=== PATIENT | male | born 1955 | race Caucasian/White ===

== ENCOUNTER 2018-04-09 11:20 | Inpatient (IN) ==
[2018-04-09] MEDS ORDERED: SODIUM CHLORIDE 0.9% 1,000 ML IV STA (11:35)
[2018-04-09] MEDS ORDERED: FAMOTIDINE 20 MG/2 ML VIAL IV STA (11:46)
[2018-04-09 12:04] LABS: Basophils # 0.1 10*3/uL (0.0-0.2); Basophils % 0.3 % (0.0-0.8); Eosinophils % 0.2 % (0.00-10.9); Hematocrit 38.7 VOL% (42.0-52.0); Hemoglobin 13.8 GM/DL (14.0-18.0); Immature Granulocytes % 2.5 %; Immature Granulocytes Absolute 0.46 #; Lymphocytes % 10.7 % (21.2-54.2); Mean Corpuscular HGB Conc 35.7 GM/DL (32-36); Mean Corpuscular Hemoglobin 33 PG (27-34); Mean Corpuscular Volume 91.9 FL (87-102); Mean Platelet Volume 11.7 FL (9.6-12.0); Monocytes % 10.9 % (1.7-12.7); Neutrophils % 75.4 % (38.7-73.9); Platelet Count 200 T/CUMM (130-400); Red Blood Count 4.21 MC/CUMM (3.8-5.5); Red Cell Distribution Width 12.8 % (9.3-17.3); White Blood Count 18.6 T/CUMM (4-12)
[2018-04-09 12:19] LABS: Alanine Aminotransferase 12 U/L (16-61); Albumin 2.7 G/DL (3.4-5.0); Alkaline Phosphatase 77 U/L (45-117); Aspartate Amino Transferase 22 U/L (0-37); Blood Urea Nitrogen 22 MG/DL (7-18); Calcium 8.1 MG/DL (8.5-10.1); Glucose 115 MG/DL (74-106); Osmolality,Calculated 247.1 MOS/KG (273-304); Potassium 3.5 MMOL/L (3.5-5.1); Sodium 121 MMOL/L (136-145); Total Protein 5.7 G/DL (6.4-8.3)
[2018-04-09 12:22] LABS: Lactic Acid 2.9 MMOL/L (0.4-2.0)
[2018-04-09 12:32] LABS: INR 0.9
[2018-04-09 12:50] LABS: Hypochromasia 1+; Platelet Estimate Adequate
[2018-04-09 13:09] LABS: Apearance,Urine Slightly Hazy (Clear); Bacteria,Urine Moderate /HPF (Few); Bilirubin,Urine Negative (Negative); Blood, Urine Negative (Negative); Glucose,Urine (UA) Negative (Negative); Hyaline Casts,Urine 16 /LPF (0-3); Ketones,Urine Negative (Negative); Mucus,Urine Occasional /LPF (Occasional); Nitrite,Urine Negative (Negative); Protein,Urine Negative; Squamous Epithelial Cell,Urine Occasional /HPF (0-10); Urine Color Yellow (Yellow); Urine Specific Gravity 1.011 (1.001-1.035); Urine Urobilinogen < 2.0 EU/DL (0.2-1.0); WBC,Urine 9 /HPF (0-6)
[2018-04-09] MEDS ORDERED: SODIUM CHLORIDE 0.9% 1,000 ML IV ONE (14:42)
[2018-04-09] MEDS ORDERED: ONDANSETRON 4 MG/2 ML VIAL IV PRN (14:49)
[2018-04-09] MEDS ORDERED: BUDESONIDE 0.25 MG/2 ML NEB RESP TX PRN (15:07)
[2018-04-09] MEDS: PIPERACILLIN/TAZOBACTAM 3,375 MG in SODIUM CHLORIDE 0.9% 100 ML IV SCH (17:13)
[2018-04-09] MEDS: SODIUM CHLORIDE 0.9% 1,000 ML IV SCH (17:14)
[2018-04-09 18:07] LABS: Hemoglobin 12.7 GM/DL (14.0-18.0)
[2018-04-09] MEDS: VANCOMYCIN INJ 1,250 MG in SODIUM CHLORIDE 0.9% 250 ML IV SCH (20:00)
[2018-04-09] MEDS ORDERED: ZIPRASIDONE 20 MG/1 ML VIAL IM ONE (20:09)
[2018-04-09] MEDS ORDERED: CLORAZEPATE 7.5 MG TABLET PO ONE (20:10)
[2018-04-09] MEDS: NICOTINE 21 MG/24 HR PATCH TRANSDERM SCH (20:42)
[2018-04-09] MEDS: GENTAMICIN INJ 160 MG in SODIUM CHLORIDE 0.9% 100 ML IV SCH (22:20)
[2018-04-09] MEDS: ALBUTEROL/IPRATROPIUM 3 ML NEB RESP TX SCH (23:43)
[2018-04-10] MEDS: PIPERACILLIN/TAZOBACTAM 3,375 MG in SODIUM CHLORIDE 0.9% 100 ML IV SCH ×2 (02:43→13:50)
[2018-04-10] MEDS: ALBUTEROL/IPRATROPIUM 3 ML NEB RESP TX SCH ×3 (07:25→23:02)
[2018-04-10] MEDS ORDERED: PANTOPRAZOLE 40 MG VIAL IV SCH (09:00)
[2018-04-10] MEDS ORDERED: SODIUM CHLORIDE 0.9% 500 ML IV ONE (10:10)
[2018-04-10] MEDS: NICOTINE 21 MG/24 HR PATCH TRANSDERM SCH (10:37)
[2018-04-10 10:42] LABS: Basophils # 0.1 10*3/uL (0.0-0.2); Basophils % 0.8 % (0.0-0.8); Eosinophils # 0.2 10*3/uL (0.0-0.87); Eosinophils % 1.2 % (0.00-10.9); Hematocrit 36.9 VOL% (42.0-52.0); Hemoglobin 12.8 GM/DL (14.0-18.0); Immature Granulocytes % 2.1 %; Immature Granulocytes Absolute 0.27 #; Lymphocytes # 2.7 10*3/uL (1.4-4.0); Lymphocytes % 21.2 % (21.2-54.2); Mean Corpuscular HGB Conc 34.7 GM/DL (32-36); Mean Corpuscular Hemoglobin 33 PG (27-34); Mean Corpuscular Volume 93.7 FL (87-102); Mean Platelet Volume 11.9 FL (9.6-12.0); Monocytes # 1.5 10*3/uL (0.11-0.8); Monocytes % 11.5 % (1.7-12.7); Neutrophils % 63.2 % (38.7-73.9); Platelet Count 225 T/CUMM (130-400); Red Blood Count 3.94 MC/CUMM (3.8-5.5); White Blood Count 12.7 T/CUMM (4-12)
[2018-04-10] MEDS ORDERED: FINASTERIDE 1 MG PO SCH (10:45)
[2018-04-10 10:47] LABS: Calcium 8.3 MG/DL (8.5-10.1); Osmolality,Calculated 262.7 MOS/KG (273-304); Potassium 3.4 MMOL/L (3.5-5.1)
[2018-04-10 11:03] LABS: Hematocrit 35.9 VOL% (42.0-52.0); Hemoglobin 12.6 GM/DL (14.0-18.0)
[2018-04-10] MEDS: SODIUM CHLORIDE 0.9% 1,000 ML IV SCH ×2 (12:54→23:38)
[2018-04-10] MEDS: PRAMIPEXOLE 0.25 MG TABLET PO SCH ×2 (13:05→21:22)
[2018-04-10] MEDS: TAMSULOSIN 0.4 MG CAPSULE PO SCH (13:06)
[2018-04-10] MEDS: predniSONE 5 MG TABLET PO SCH (13:06)
[2018-04-10] MEDS: FOLIC ACID 1 MG TABLET PO SCH (13:08)
[2018-04-10] MEDS: GENTAMICIN INJ 160 MG in SODIUM CHLORIDE 0.9% 100 ML IV SCH (13:50)
[2018-04-10] MEDS: GABAPENTIN 600 MG TABLET PO SCH ×2 (16:19→21:22)
[2018-04-10] MEDS: VANCOMYCIN INJ 1,250 MG in SODIUM CHLORIDE 0.9% 250 ML IV SCH (21:21)
[2018-04-10] MEDS: PANTOPRAZOLE 40 MG VIAL IV SCH (21:21)
[2018-04-11] MEDS: SODIUM CHLORIDE 0.9% 1,000 ML IV SCH ×2 (04:42→18:39)
[2018-04-11 05:49] LABS: Basophils # 0.1 10*3/uL (0.0-0.2); Basophils % 1.2 % (0.0-0.8); Eosinophils # 0.2 10*3/uL (0.0-0.87); Eosinophils % 2.3 % (0.00-10.9); Immature Granulocytes % 4.7 %; Lymphocytes # 2.7 10*3/uL (1.4-4.0); Lymphocytes % 31.2 % (21.2-54.2); Mean Corpuscular HGB Conc 34.3 GM/DL (32-36); Mean Corpuscular Hemoglobin 32 PG (27-34); Mean Corpuscular Volume 94.1 FL (87-102); Mean Platelet Volume 11.4 FL (9.6-12.0); Monocytes # 0.9 10*3/uL (0.11-0.8); Monocytes % 10.4 % (1.7-12.7); Neutrophils # 4.3 10*3/uL (1.4-7.4); Neutrophils % 50.2 % (38.7-73.9); Platelet Count 213 T/CUMM (130-400); Red Blood Count 3.72 MC/CUMM (3.8-5.5); Red Cell Distribution Width 13.1 % (9.3-17.3); White Blood Count 8.6 T/CUMM (4-12)
[2018-04-11 07:00] LABS: Calcium 8.2 MG/DL (8.5-10.1); Osmolality,Calculated 261.4 MOS/KG (273-304); Potassium 3.4 MMOL/L (3.5-5.1)
[2018-04-11] MEDS ORDERED: LIDOCAINE 100 MG/5 ML SYRINGE ONE (10:00)
[2018-04-11] MEDS ORDERED: PROPOFOL 200 MG/20 ML VIAL IV ONE (10:00)
[2018-04-11] MEDS: ALBUTEROL/IPRATROPIUM 3 ML NEB RESP TX SCH ×3 (10:39→23:14)
[2018-04-11] MEDS: VANCOMYCIN INJ 1,250 MG in SODIUM CHLORIDE 0.9% 250 ML IV SCH ×2 (12:12→23:21)
[2018-04-11] MEDS: PANTOPRAZOLE 40 MG VIAL IV SCH ×2 (14:44→21:37)
[2018-04-11] MEDS: PRAMIPEXOLE 0.25 MG TABLET PO SCH ×2 (14:45→21:36)
[2018-04-11] MEDS: NICOTINE 21 MG/24 HR PATCH TRANSDERM SCH (14:45)
[2018-04-11] MEDS: POTASSIUM CHLORIDE 20 MEQ TABLET PO PRN ×2 (14:46→18:40)
[2018-04-11] MEDS: CETIRIZINE 10 MG TABLET PO SCH (14:46)
[2018-04-11] MEDS: TAMSULOSIN 0.4 MG CAPSULE PO SCH (14:46)
[2018-04-11] MEDS: GABAPENTIN 600 MG TABLET PO SCH ×3 (14:46→21:37)
[2018-04-11] MEDS: FOLIC ACID 1 MG TABLET PO SCH (14:47)
[2018-04-11] MEDS: predniSONE 5 MG TABLET PO SCH (14:47)
[2018-04-12] MEDS: SODIUM CHLORIDE 0.9% 1,000 ML IV SCH (00:40)
[2018-04-12] MEDS: ALBUTEROL/IPRATROPIUM 3 ML NEB RESP TX SCH ×2 (07:40→14:15)
[2018-04-12 07:59] LABS: Basophils # 0.1 10*3/uL (0.0-0.2); Basophils % 1.1 % (0.0-0.8); Eosinophils # 0.3 10*3/uL (0.0-0.87); Eosinophils % 3.1 % (0.00-10.9); Hematocrit 37.8 VOL% (42.0-52.0); Hemoglobin 12.2 GM/DL (14.0-18.0); Immature Granulocytes % 4.2 %; Immature Granulocytes Absolute 0.46 #; Lymphocytes # 3.6 10*3/uL (1.4-4.0); Lymphocytes % 32.5 % (21.2-54.2); Mean Corpuscular HGB Conc 32.3 GM/DL (32-36); Mean Corpuscular Hemoglobin 31 PG (27-34); Mean Corpuscular Volume 95.5 FL (87-102); Mean Platelet Volume 10.8 FL (9.6-12.0); Monocytes # 1.1 10*3/uL (0.11-0.8); Monocytes % 10.2 % (1.7-12.7); Neutrophils # 5.4 10*3/uL (1.4-7.4); Neutrophils % 48.9 % (38.7-73.9); Platelet Count 256 T/CUMM (130-400); Red Blood Count 3.96 MC/CUMM (3.8-5.5); Red Cell Distribution Width 13.2 % (9.3-17.3); White Blood Count 11.1 T/CUMM (4-12)
[2018-04-12] MEDS ORDERED: CALCIUM CARBONATE CHEW 500 MG TABLET PO PRN (08:20)
[2018-04-12 08:29] LABS: Calcium 8.3 MG/DL (8.5-10.1); Osmolality,Calculated 262.2 MOS/KG (273-304); Potassium 3.5 MMOL/L (3.5-5.1)
[2018-04-12] MEDS: PANTOPRAZOLE 40 MG VIAL IV SCH (08:43)
[2018-04-12] MEDS: NICOTINE 21 MG/24 HR PATCH TRANSDERM SCH (08:44)
[2018-04-12] MEDS: predniSONE 5 MG TABLET PO SCH (08:45)
[2018-04-12] MEDS: PRAMIPEXOLE 0.25 MG TABLET PO SCH (08:45)
[2018-04-12] MEDS: TAMSULOSIN 0.4 MG CAPSULE PO SCH (08:45)
[2018-04-12] MEDS: CETIRIZINE 10 MG TABLET PO SCH (08:45)
[2018-04-12] MEDS: GABAPENTIN 600 MG TABLET PO SCH (08:46)
[2018-04-12] MEDS: FOLIC ACID 1 MG TABLET PO SCH (08:46)
[2018-04-12] MEDS ORDERED: ACETAMINOPHEN 325 MG TABLET PO PRN (08:58)
[2018-04-12] MEDS ORDERED: FUROSEMIDE 20 MG TABLET PO SCH (09:00)
[2018-04-12] MEDS ORDERED: LISINOPRIL 10 MG TABLET PO SCH (09:00)
[2018-04-12] MEDS ORDERED: SODIUM CHLORIDE 0.65% NASAL SPRAY 45 ML BOTTLE BOTH NARES SCH (09:00)
[2018-04-12] MEDS ORDERED: METOPROLOL TARTRATE 50 MG TABLET PO SCH (09:00)
[2018-04-12 12:23] VITALS: BP 160/91
[2018-04-12] MEDS: VANCOMYCIN INJ 1,250 MG in SODIUM CHLORIDE 0.9% 250 ML IV SCH (14:20)
[2018-04-12] MEDS ORDERED: CARVEDILOL 25 MG TABLET PO SCH (14:30)
== END 2018-04-12 16:00 | DRG 313 ==
LOC: EDUNIT# → EDBD → N.ED 11:20 → SUATTDRO 14:49 → N.EDINP 14:49 → N.TELEN 16:15
PROVIDERS: ATTEND Hospitalist

== ENCOUNTER 2018-07-04 10:02 | Inpatient (IN) ==
[2018-07-04 10:24] LABS: Basophils # 0.1 10*3/uL (0.0-0.2); Basophils % 0.4 % (0.0-0.8); Eosinophils # 0.5 10*3/uL (0.0-0.87); Eosinophils % 3.3 % (0.00-10.9); Hematocrit 38.8 VOL% (42.0-52.0); Hemoglobin 12.8 GM/DL (14.0-18.0); Immature Granulocytes % 1.1 %; Immature Granulocytes Absolute 0.18 #; Lymphocytes # 3.3 10*3/uL (1.4-4.0); Lymphocytes % 20.6 % (21.2-54.2); Mean Corpuscular Hemoglobin 30 PG (27-34); Mean Corpuscular Volume 92.2 FL (87-102); Mean Platelet Volume 10.4 FL (9.6-12.0); Monocytes # 1.3 10*3/uL (0.11-0.8); Monocytes % 8.3 % (1.7-12.7); Neutrophils # 10.6 10*3/uL (1.4-7.4); Neutrophils % 66.3 % (38.7-73.9); Platelet Count 285 T/CUMM (130-400); Red Blood Count 4.21 MC/CUMM (3.8-5.5); Red Cell Distribution Width 13.9 % (9.3-17.3)
[2018-07-04 10:41] LABS: Calcium 8.6 MG/DL (8.5-10.1); Osmolality,Calculated 267.1 MOS/KG (273-304); Potassium 3.3 MMOL/L (3.5-5.1)
[2018-07-04] MEDS ORDERED: traMADol 50 MG TABLET PO PRN (12:47)
[2018-07-04] MEDS ORDERED: BUDESONIDE 0.25 MG/2 ML NEB RESP TX PRN (12:47)
[2018-07-04] MEDS ORDERED: diphenhydrAMINE CAP 25 MG CAPSULE PO PRN (12:47)
[2018-07-04] MEDS ORDERED: DICLOFENAC 1% GEL 100 GM TUBE TOP PRN (12:47)
[2018-07-04 13:17] LABS: Apearance,Urine CLEAR (Clear); Bilirubin,Urine Negative (Negative); Blood, Urine Negative (Negative); Glucose,Urine (UA) Negative (Negative); Ketones,Urine Negative (Negative); Mucus,Urine Occasional /LPF (Occasional); Nitrite,Urine Negative (Negative); Protein,Urine Negative; RBC,Urine 1 /HPF (0-4); Urine Color Yellow (Yellow); Urine Specific Gravity 1.008 (1.001-1.035); Urine Urobilinogen < 2.0 EU/DL (0.2-1.0); WBC,Urine 1 /HPF (0-6)
[2018-07-04] MEDS ORDERED: POTASSIUM CHLORIDE RIDER 10 MEQ in PREMIX 1 EACH IV PRN (13:49)
[2018-07-04 14:19] LABS: INR 0.9; PT Patient Result 9.8 SECS; Partial Thromboplastin Time 27.1 SECS (0-40)
[2018-07-04] MEDS ORDERED: ONDANSETRON 4 MG/2 ML VIAL IV PRN (15:30)
[2018-07-04] MEDS ORDERED: ACETAMINOPHEN 325 MG TABLET PO PRN (15:30)
[2018-07-04] MEDS ORDERED: GLUCAGON 1 MG VIAL IM PRN (15:30)
[2018-07-04] MEDS ORDERED: PANTOPRAZOLE 40 MG TABLET PO SCH (15:30)
[2018-07-04] MEDS ORDERED: ZALEPLON 5 MG CAPSULE PO PRN (15:30)
[2018-07-04] MEDS ORDERED: BISACODYL 5 MG TABLET PO PRN (15:30)
[2018-07-04] MEDS ORDERED: DEXTROSE 50% 25 GM/50 ML SYRINGE IV PRN (15:30)
[2018-07-04] MEDS ORDERED: LACTULOSE 20 GM/30 ML UDCUP PO PRN (15:30)
[2018-07-04] MEDS ORDERED: SODIUM CHLORIDE 0.9% 500 ML IV ONE (15:38)
[2018-07-04] MEDS: ALBUTEROL/IPRATROPIUM 3 ML NEB RESP TX SCH ×2 (15:54→23:30)
[2018-07-04] MEDS: SODIUM CHLORIDE 0.45% 1,000 ML IV SCH (16:37)
[2018-07-04] MEDS: PRAMIPEXOLE 0.25 MG TABLET PO SCH ×2 (16:38→20:49)
[2018-07-04] MEDS: CETIRIZINE 10 MG TABLET PO SCH (16:38)
[2018-07-04] MEDS: PIPERACILLIN/TAZOBACTAM 3,375 MG in SODIUM CHLORIDE 0.9% 100 ML IV SCH ×2 (16:38→23:24)
[2018-07-04] MEDS: GABAPENTIN 600 MG TABLET PO SCH ×2 (16:38→20:49)
[2018-07-04] MEDS: PANTOPRAZOLE 40 MG TABLET PO SCH ×2 (16:39→20:50)
[2018-07-04] MEDS: FOLIC ACID 1 MG TABLET PO SCH (16:39)
[2018-07-04] MEDS: CILOSTAZOL 100 MG TABLET PO SCH ×2 (16:39→20:49)
[2018-07-04] MEDS: CYCLOBENZAPRINE 10 MG TABLET PO SCH ×2 (16:39→20:50)
[2018-07-04] MEDS: INSULIN REGULAR 100 UNIT/ML SUBCUT SCH ×2 (16:52→20:44)
[2018-07-04] MEDS: POTASSIUM CHLORIDE 20 MEQ TABLET PO PRN ×2 (17:26→20:49)
[2018-07-04] MEDS ORDERED: IBUPROFEN 400 MG TABLET PO PRN (17:46)
[2018-07-04] MEDS: METOPROLOL TARTRATE 50 MG TABLET PO SCH (20:49)
[2018-07-04] MEDS: SODIUM CHLORIDE 0.65% NASAL SPRAY 45 ML BOTTLE BOTH NARES SCH (20:50)
[2018-07-04] MEDS ORDERED: ENOXAPARIN 40 MG/0.4 ML SYRINGE SUBCUT SCH (21:00)
[2018-07-04] MEDS ORDERED: traZODone 50 MG TABLET PO SCH (21:00)
[2018-07-04 21:42] LABS: Folate > 24.0 NG/ML (5.4-24.0); Vitamin B12 460 PG/ML (211-911)
[2018-07-04] MEDS: IBUPROFEN 400 MG TABLET PO PRN (23:24)
[2018-07-05 05:25] LABS: Calcium 7.9 MG/DL (8.5-10.1); Osmolality,Calculated 264.2 MOS/KG (273-304); Potassium 3.2 MMOL/L (3.5-5.1); Risk Ratio 2.82; VLDL CHOLESTEROL 22.8 MG/DL
[2018-07-05 05:30] LABS: Basophils # 0.1 10*3/uL (0.0-0.2); Basophils % 0.5 % (0.0-0.8); Eosinophils # 0.5 10*3/uL (0.0-0.87); Eosinophils % 3.2 % (0.00-10.9); Hematocrit 32.9 VOL% (42.0-52.0); Hemoglobin 10.9 GM/DL (14.0-18.0); Immature Granulocytes % 1.2 %; Immature Granulocytes Absolute 0.16 #; Lymphocytes # 3.2 10*3/uL (1.4-4.0); Lymphocytes % 23.3 % (21.2-54.2); Mean Corpuscular HGB Conc 33.1 GM/DL (32-36); Mean Corpuscular Hemoglobin 31 PG (27-34); Mean Corpuscular Volume 93.5 FL (87-102); Monocytes # 1.4 10*3/uL (0.11-0.8); Monocytes % 9.9 % (1.7-12.7); Neutrophils # 8.6 10*3/uL (1.4-7.4); Neutrophils % 61.9 % (38.7-73.9); Platelet Count 238 T/CUMM (130-400); Red Blood Count 3.52 MC/CUMM (3.8-5.5); Red Cell Distribution Width 14.3 % (9.3-17.3); White Blood Count 13.9 T/CUMM (4-12)
[2018-07-05] MEDS: SODIUM CHLORIDE 0.45% 1,000 ML IV SCH (06:08)
[2018-07-05] MEDS: IBUPROFEN 400 MG TABLET PO PRN (06:55)
[2018-07-05] MEDS: POTASSIUM CHLORIDE 20 MEQ TABLET PO PRN (06:55)
[2018-07-05] MEDS: CILOSTAZOL 100 MG TABLET PO SCH (08:15)
[2018-07-05] MEDS: METOPROLOL TARTRATE 50 MG TABLET PO SCH (08:15)
[2018-07-05] MEDS: GABAPENTIN 600 MG TABLET PO SCH (08:15)
[2018-07-05] MEDS: PRAMIPEXOLE 0.25 MG TABLET PO SCH (08:15)
[2018-07-05] MEDS: CYCLOBENZAPRINE 10 MG TABLET PO SCH (08:16)
[2018-07-05] MEDS: FOLIC ACID 1 MG TABLET PO SCH (08:16)
[2018-07-05] MEDS: CETIRIZINE 10 MG TABLET PO SCH (08:16)
[2018-07-05] MEDS: PANTOPRAZOLE 40 MG TABLET PO SCH (08:16)
[2018-07-05] MEDS: INSULIN REGULAR 100 UNIT/ML SUBCUT SCH ×2 (08:23→11:20)
[2018-07-05] MEDS: ALBUTEROL/IPRATROPIUM 3 ML NEB RESP TX SCH (08:33)
[2018-07-05] MEDS: SODIUM CHLORIDE 0.65% NASAL SPRAY 45 ML BOTTLE BOTH NARES SCH (08:44)
[2018-07-05] MEDS ORDERED: TAMSULOSIN 0.4 MG CAPSULE PO SCH (09:00)
[2018-07-05] MEDS ORDERED: FINASTERIDE 1 MG PO SCH (09:00)
[2018-07-05] MEDS ORDERED: ASPIRIN EC 81 MG TABLET PO SCH (09:00)
[2018-07-05] MEDS ORDERED: predniSONE 5 MG TABLET PO SCH (09:00)
[2018-07-05] MEDS ORDERED: POTASSIUM CHLORIDE 20 MEQ TABLET PO ONE (11:48)
[2018-07-05 11:53] VITALS: BP 159/97
[2018-07-05] MEDS: PIPERACILLIN/TAZOBACTAM 3,375 MG in SODIUM CHLORIDE 0.9% 100 ML IV SCH (12:18)
== END 2018-07-05 14:08 | DRG 603 ==
LOC: EDBD → EDUNIT# → N.ED 10:02 → N.EDINP 12:41 → N.3E 15:14
PROVIDERS: ADMIT Internal Medicine; ATTEND Internal Medicine

== ENCOUNTER 2018-07-21 04:29 | Inpatient (IN) ==
[2018-07-21 05:44] LABS: Basophils % 0.1 % (0.0-0.8); Hematocrit 34.3 VOL% (42.0-52.0); Hemoglobin 11.7 GM/DL (14.0-18.0); Immature Granulocytes % 2.1 %; Immature Granulocytes Absolute 0.57 #; Lymphocytes # 1.9 10*3/uL (1.4-4.0); Lymphocytes % 6.8 % (21.2-54.2); Mean Corpuscular HGB Conc 34.1 GM/DL (32-36); Mean Corpuscular Hemoglobin 31 PG (27-34); Mean Corpuscular Volume 90.5 FL (87-102); Mean Platelet Volume 11.4 FL (9.6-12.0); Monocytes # 1.5 10*3/uL (0.11-0.8); Monocytes % 5.4 % (1.7-12.7); Neutrophils # 23.3 10*3/uL (1.4-7.4); Neutrophils % 85.6 % (38.7-73.9); Platelet Count 244 T/CUMM (130-400); Red Blood Count 3.79 MC/CUMM (3.8-5.5); Red Cell Distribution Width 14.6 % (9.3-17.3); White Blood Count 27.2 T/CUMM (4-12)
[2018-07-21] MEDS ORDERED: SODIUM CHLORIDE 0.9% 1,000 ML IV STA (06:09)
[2018-07-21] MEDS ORDERED: cefTRIAXone 1,000 MG in SODIUM CHLORIDE 0.9% 100 ML IV STA (06:10)
[2018-07-21 06:12] LABS: Albumin 2.9 G/DL (3.4-5.0); Bilirubin,Total 0.4 MG/DL (0.2-1.0); Calcium 8.5 MG/DL (8.5-10.1); Osmolality,Calculated 254.6 MOS/KG (273-304); Potassium 3.5 MMOL/L (3.5-5.1); Total Protein 6.3 G/DL (6.4-8.3)
[2018-07-21 06:30] LABS: Band Neutrophils 1 % (0-10); Lymphocytes 7 % (20-55); Segmented Neutrophils 87 % (50-85); Total Cells Counted 100
[2018-07-21 06:31] LABS: Anisocytosis 1+; Macrocytosis 1+; Platelet Estimate Normal
[2018-07-21 08:30] LABS: Apearance,Urine CLEAR (Clear); Bilirubin,Urine Negative (Negative); Blood, Urine Negative (Negative); Glucose,Urine (UA) Negative (Negative); Hyaline Casts,Urine 8 /LPF (0-3); Ketones,Urine Negative (Negative); Nitrite,Urine Negative (Negative); Protein,Urine Negative; RBC,Urine 6 /HPF (0-4); Squamous Epithelial Cell,Urine Occasional /HPF (0-10); Urine Color Yellow (Yellow); Urine Specific Gravity 1.009 (1.001-1.035); Urine Urobilinogen < 2.0 EU/DL (0.2-1.0); WBC,Urine 2 /HPF (0-6)
[2018-07-21] MEDS ORDERED: ONDANSETRON 4 MG/2 ML VIAL IV PRN (08:58)
[2018-07-21] MEDS ORDERED: VANCOMYCIN INJ 1,250 MG in SODIUM CHLORIDE 0.9% 250 ML IV PRN (09:00)
[2018-07-21] MEDS: SODIUM CHLOR 0.9% KCL 20 MEQ 20 MEQ/1,000 ML BAG IV SCH ×2 (10:08→20:46)
[2018-07-21] MEDS: PANTOPRAZOLE 40 MG VIAL IV SCH (10:09)
[2018-07-21] MEDS: PIPERACILLIN/TAZOBACTAM 3,375 MG in SODIUM CHLORIDE 0.9% 100 ML IV SCH ×2 (10:09→16:31)
[2018-07-21] MEDS ORDERED: ACETAMINOPHEN 500 MG TABLET PO PRN (10:55)
[2018-07-21] MEDS: ALBUTEROL/IPRATROPIUM 3 ML NEB RESP TX SCH ×4 (11:00→23:33)
[2018-07-21] MEDS ORDERED: MAGNESIUM SULF RIDER 2 GM in PREMIX 1 EACH IV PRN (11:07)
[2018-07-21] MEDS: LEVOTHYROXINE 50 MCG TABLET PO SCH ×2 (12:44→16:32)
[2018-07-21] MEDS ORDERED: VANCOMYCIN INJ 1,750 MG in SODIUM CHLORIDE 0.9% 500 ML IV ONE (13:00)
[2018-07-21] MEDS ORDERED: SODIUM CHLORIDE 0.9% 500 ML IV ONE (17:08)
[2018-07-21] MEDS ORDERED: SODIUM CHLORIDE 0.9% 2,000 ML IV ONE (17:20)
[2018-07-21] MEDS ORDERED: SODIUM CHLORIDE 0.9% 2,850 ML IV ONE (17:21)
[2018-07-21] MEDS: methylPREDNISolone SOD SUC 40 MG/1 ML VIAL IV SCH (18:05)
[2018-07-21] MEDS: MEROPENEM 1,000 MG in SODIUM CHLORIDE 0.9% 100 ML IV SCH (18:06)
[2018-07-21] MEDS: risperiDONE 1 MG TABLET PO SCH (20:45)
[2018-07-21] MEDS: ATORVASTATIN 40 MG TABLET PO SCH (20:45)
[2018-07-21] MEDS: CALCIUM (CARBONATE)/VITAMIN D 600 MG-400 UNIT TABLET PO SCH (20:45)
[2018-07-21] MEDS: OXcarbazepine 300 MG TABLET PO SCH (20:45)
[2018-07-22 01:14] LABS: Basophils % 0.1 % (0.0-0.8); Hematocrit 27.4 VOL% (42.0-52.0); Hemoglobin 9.2 GM/DL (14.0-18.0); Immature Granulocytes % 1.7 %; Immature Granulocytes Absolute 0.26 #; Lymphocytes # 0.4 10*3/uL (1.4-4.0); Lymphocytes % 2.7 % (21.2-54.2); Mean Corpuscular HGB Conc 33.6 GM/DL (32-36); Mean Corpuscular Hemoglobin 31 PG (27-34); Mean Platelet Volume 11.3 FL (9.6-12.0); Monocytes # 0.8 10*3/uL (0.11-0.8); Monocytes % 5.2 % (1.7-12.7); Neutrophils # 13.5 10*3/uL (1.4-7.4); Neutrophils % 90.3 % (38.7-73.9); Platelet Count 237 T/CUMM (130-400); Red Blood Count 3.01 MC/CUMM (3.8-5.5); Red Cell Distribution Width 14.9 % (9.3-17.3); White Blood Count 14.9 T/CUMM (4-12)
[2018-07-22] MEDS: methylPREDNISolone SOD SUC 40 MG/1 ML VIAL IV SCH ×4 (01:30→12:45)
[2018-07-22 01:32] LABS: Calcium 7.9 MG/DL (8.5-10.1); Osmolality,Calculated 270.2 MOS/KG (273-304); Potassium 3.5 MMOL/L (3.5-5.1)
[2018-07-22 01:34] LABS: Band Neutrophils 1 % (0-10); Lymphocytes 4 % (20-55); Segmented Neutrophils 91 % (50-85); Total Cells Counted 100
[2018-07-22 01:35] LABS: Hypochromasia 1+; Platelet Estimate Normal
[2018-07-22] MEDS: ALBUTEROL/IPRATROPIUM 3 ML NEB RESP TX SCH ×6 (02:57→23:37)
[2018-07-22] MEDS ORDERED: LORazepam 2 MG/1 ML VIAL IV ONE (04:44)
[2018-07-22] MEDS ORDERED: LORazepam 2 MG/1 ML VIAL ONE (04:47)
[2018-07-22] MEDS: MEROPENEM 1,000 MG in SODIUM CHLORIDE 0.9% 100 ML IV SCH ×3 (06:09→17:41)
[2018-07-22] MEDS ORDERED: FUROSEMIDE 20 MG TABLET PO SCH (09:00)
[2018-07-22] MEDS: SODIUM CHLOR 0.9% KCL 20 MEQ 20 MEQ/1,000 ML BAG IV SCH ×2 (09:26→20:53)
[2018-07-22] MEDS: PANTOPRAZOLE 40 MG VIAL IV SCH (10:00)
[2018-07-22] MEDS: VANCOMYCIN INJ 1,500 MG in SODIUM CHLORIDE 0.9% 500 ML IV SCH ×2 (10:00→22:42)
[2018-07-22] MEDS ORDERED: VANCOMYCIN INJ 1,250 MG in SODIUM CHLORIDE 0.9% 250 ML IV PRN (10:00)
[2018-07-22] MEDS: POTASSIUM CHLORIDE 20 MEQ TABLET PO SCH (10:01)
[2018-07-22] MEDS: ASPIRIN EC 81 MG TABLET PO SCH (10:01)
[2018-07-22] MEDS: risperiDONE 1 MG TABLET PO SCH ×2 (10:01→20:53)
[2018-07-22] MEDS: OXcarbazepine 300 MG TABLET PO SCH ×2 (10:01→20:53)
[2018-07-22] MEDS: LEVOTHYROXINE 50 MCG TABLET PO SCH ×3 (10:01→17:42)
[2018-07-22] MEDS: SERTRALINE 50 MG TABLET PO SCH (10:01)
[2018-07-22] MEDS: CALCIUM (CARBONATE)/VITAMIN D 600 MG-400 UNIT TABLET PO SCH ×2 (10:01→20:53)
[2018-07-22] MEDS ORDERED: FUROSEMIDE 20 MG/2 ML VIAL ONE (12:40)
[2018-07-22] MEDS: FUROSEMIDE 40 MG/4 ML VIAL IV SCH (12:46)
[2018-07-22] MEDS: ATORVASTATIN 40 MG TABLET PO SCH (20:53)
[2018-07-23] MEDS: methylPREDNISolone SOD SUC 40 MG/1 ML VIAL IV SCH ×3 (01:05→22:16)
[2018-07-23] MEDS: MEROPENEM 1,000 MG in SODIUM CHLORIDE 0.9% 100 ML IV SCH ×3 (02:56→16:46)
[2018-07-23] MEDS: ALBUTEROL/IPRATROPIUM 3 ML NEB RESP TX SCH ×6 (03:26→23:43)
[2018-07-23 05:06] LABS: Calcium 8.6 MG/DL (8.5-10.1); Potassium 3.3 MMOL/L (3.5-5.1)
[2018-07-23 05:10] LABS: Basophils # 0.1 10*3/uL (0.0-0.2); Basophils % 0.3 % (0.0-0.8); Hematocrit 31.1 VOL% (42.0-52.0); Hemoglobin 10.3 GM/DL (14.0-18.0); Immature Granulocytes % 4.4 %; Immature Granulocytes Absolute 0.89 #; Lymphocytes # 2.2 10*3/uL (1.4-4.0); Lymphocytes % 10.9 % (21.2-54.2); Mean Corpuscular HGB Conc 33.1 GM/DL (32-36); Mean Corpuscular Hemoglobin 30 PG (27-34); Mean Corpuscular Volume 90.7 FL (87-102); Mean Platelet Volume 11.9 FL (9.6-12.0); Monocytes # 1.5 10*3/uL (0.11-0.8); Monocytes % 7.3 % (1.7-12.7); Neutrophils # 15.5 10*3/uL (1.4-7.4); Neutrophils % 77.1 % (38.7-73.9); Platelet Count 276 T/CUMM (130-400); Red Blood Count 3.43 MC/CUMM (3.8-5.5); Red Cell Distribution Width 15.3 % (9.3-17.3); White Blood Count 20.1 T/CUMM (4-12)
[2018-07-23 05:45] LABS: Lymphocytes 11 % (20-55); Metamyelocytes 1 %; Platelet Estimate Normal; Segmented Neutrophils 83 % (50-85); Total Cells Counted 100
[2018-07-23] MEDS: LEVOTHYROXINE 50 MCG TABLET PO SCH ×3 (08:48→16:45)
[2018-07-23] MEDS: SERTRALINE 50 MG TABLET PO SCH (08:48)
[2018-07-23] MEDS: ASPIRIN EC 81 MG TABLET PO SCH (08:48)
[2018-07-23] MEDS: POTASSIUM CHLORIDE 20 MEQ TABLET PO SCH (08:49)
[2018-07-23] MEDS: OXcarbazepine 300 MG TABLET PO SCH ×2 (08:49→22:16)
[2018-07-23] MEDS: CALCIUM (CARBONATE)/VITAMIN D 600 MG-400 UNIT TABLET PO SCH ×2 (08:49→22:16)
[2018-07-23] MEDS: risperiDONE 1 MG TABLET PO SCH ×2 (08:49→22:16)
[2018-07-23] MEDS: PANTOPRAZOLE 40 MG VIAL IV SCH (08:50)
[2018-07-23] MEDS: FUROSEMIDE 40 MG/4 ML VIAL IV SCH (08:50)
[2018-07-23] MEDS: SODIUM CHLOR 0.9% KCL 20 MEQ 20 MEQ/1,000 ML BAG IV SCH (09:34)
[2018-07-23] MEDS: VANCOMYCIN INJ 1,500 MG in SODIUM CHLORIDE 0.9% 500 ML IV SCH (10:42)
[2018-07-23] MEDS ORDERED: GENTAMICIN INJ 500 MG in SODIUM CHLORIDE 0.9% 100 ML IV SCH (14:00)
[2018-07-23] MEDS ORDERED: MAGNESIUM SULF RIDER 4 GM in PREMIX 1 EACH IV PRN (15:35)
[2018-07-23] MEDS ORDERED: MAGNESIUM SULF RIDER 2 GM in PREMIX 1 EACH IV PRN (15:35)
[2018-07-23] MEDS ORDERED: SODIUM CHLORIDE 0.9% 1,000 ML IV SCH (16:00)
[2018-07-23] MEDS: POTASSIUM CHLORIDE 20 MEQ TABLET PO PRN (16:45)
[2018-07-23] MEDS: ATORVASTATIN 40 MG TABLET PO SCH (22:16)
[2018-07-24] MEDS: MEROPENEM 1,000 MG in SODIUM CHLORIDE 0.9% 100 ML IV SCH ×2 (03:10→11:44)
[2018-07-24] MEDS: ALBUTEROL/IPRATROPIUM 3 ML NEB RESP TX SCH ×3 (03:59→11:07)
[2018-07-24] MEDS: LEVOTHYROXINE 50 MCG TABLET PO SCH ×3 (06:02→12:09)
[2018-07-24 06:11] LABS: Calcium 8.7 MG/DL (8.5-10.1); Osmolality,Calculated 263.4 MOS/KG (273-304); Potassium 3.3 MMOL/L (3.5-5.1)
[2018-07-24] MEDS ORDERED: POTASSIUM CHLORIDE 20 MEQ TABLET PO SCH (10:00)
[2018-07-24] MEDS: CALCIUM (CARBONATE)/VITAMIN D 600 MG-400 UNIT TABLET PO SCH (10:30)
[2018-07-24] MEDS: SERTRALINE 50 MG TABLET PO SCH (10:31)
[2018-07-24] MEDS: ASPIRIN EC 81 MG TABLET PO SCH (10:31)
[2018-07-24] MEDS: OXcarbazepine 300 MG TABLET PO SCH (10:31)
[2018-07-24] MEDS: risperiDONE 1 MG TABLET PO SCH (10:31)
[2018-07-24] MEDS: POTASSIUM CHLORIDE 20 MEQ TABLET PO SCH (10:32)
[2018-07-24] MEDS: PANTOPRAZOLE 40 MG VIAL IV SCH (11:44)
[2018-07-24] MEDS: FUROSEMIDE 40 MG/4 ML VIAL IV SCH (11:44)
[2018-07-24] MEDS: methylPREDNISolone SOD SUC 40 MG/1 ML VIAL IV SCH (11:44)
[2018-07-24] MEDS: VANCOMYCIN INJ 1,500 MG in SODIUM CHLORIDE 0.9% 500 ML IV SCH (11:45)
[2018-07-24] MEDS ORDERED: METOPROLOL TARTRATE 25 MG TABLET PO SCH (12:00)
[2018-07-24] MEDS: POTASSIUM CHLORIDE 20 MEQ TABLET PO PRN (12:09)
[2018-07-24 14:25] VITALS: BP 154/97
== END 2018-07-24 14:20 | DRG 871 ==
LOC: EDBD → EDUNIT# → N.ED 04:29 → SUATTDRO 08:49 → N.EDINP 08:49 → N.2E 09:37
PROVIDERS: ADMIT Phlebology; ATTEND Hospitalist

== ENCOUNTER 2018-08-23 01:55 | Inpatient (IN) ==
[2018-08-23 02:41] LABS: Basophils % 0.4 % (0.0-0.8); Eosinophils # 0.2 10*3/uL (0.0-0.87); Eosinophils % 2.7 % (0.00-10.9); Hemoglobin 10.1 GM/DL (14.0-18.0); Immature Granulocytes % 2.7 %; Immature Granulocytes Absolute 0.23 #; Lymphocytes # 2.4 10*3/uL (1.4-4.0); Lymphocytes % 27.8 % (21.2-54.2); Mean Corpuscular HGB Conc 33.7 GM/DL (32-36); Mean Corpuscular Hemoglobin 31 PG (27-34); Mean Corpuscular Volume 90.9 FL (87-102); Mean Platelet Volume 10.2 FL (9.6-12.0); Monocytes # 1.5 10*3/uL (0.11-0.8); Neutrophils # 4.1 10*3/uL (1.4-7.4); Neutrophils % 48.4 % (38.7-73.9); Platelet Count 260 T/CUMM (130-400); Red Cell Distribution Width 13.7 % (9.3-17.3); White Blood Count 8.5 T/CUMM (4-12)
[2018-08-23 02:49] LABS: PT Patient Result 10.4 SECS; Partial Thromboplastin Time 26.6 SECS (0-40)
[2018-08-23 02:59] LABS: Alanine Aminotransferase 20 U/L (16-61); Albumin 2.7 G/DL (3.4-5.0); Alkaline Phosphatase 90 U/L (45-117); Aspartate Amino Transferase 21 U/L (0-37); Bilirubin,Total < 0.39 MG/DL (0.2-1.0); Blood Urea Nitrogen 4 MG/DL (7-18); Glucose 83 MG/DL (74-106); Osmolality,Calculated 244.6 MOS/KG (273-304); Potassium 3.2 MMOL/L (3.5-5.1); Sodium 124 MMOL/L (136-145); Total Protein 5.6 G/DL (6.4-8.3)
[2018-08-23 03:25] LABS: Eosinophils 4 % (0-10); Lymphocytes 34 % (20-55); Segmented Neutrophils 49 % (50-85)
[2018-08-23 03:26] LABS: Atypical Lymphocytes 1+; Platelet Estimate Normal; Total Cells Counted 100
[2018-08-23] MEDS ORDERED: SODIUM CHLORIDE 0.9% 2,000 ML IV STA (03:40)
[2018-08-23] MEDS ORDERED: CEFEPIME 2,000 MG in SODIUM CHLORIDE 0.9% 100 ML IV STA (05:50)
[2018-08-23] MEDS ORDERED: VANCOMYCIN INJ 1,000 MG in SODIUM CHLORIDE 0.9% 250 ML IV STA (05:50)
[2018-08-23 06:19] LABS: Apearance,Urine CLEAR (Clear); Bilirubin,Urine Negative (Negative); Blood, Urine Negative (Negative); Glucose,Urine (UA) Negative (Negative); Ketones,Urine Negative (Negative); Mucus,Urine Occasional /LPF (Occasional); Nitrite,Urine Negative (Negative); Protein,Urine Negative; RBC,Urine 1 /HPF (0-4); Squamous Epithelial Cell,Urine Occasional /HPF (0-10); Urine Color Yellow (Yellow); Urine Specific Gravity 1.009 (1.001-1.035); Urine Urobilinogen < 2.0 EU/DL (0.2-1.0); WBC,Urine 1 /HPF (0-6)
[2018-08-23] MEDS ORDERED: ONDANSETRON 4 MG/2 ML VIAL IV PRN (10:12)
[2018-08-23] MEDS: SODIUM CHLORIDE 0.9% 1,000 ML IV SCH (13:18)
[2018-08-23] MEDS: ENOXAPARIN 40 MG/0.4 ML SYRINGE SUBCUT SCH (13:18)
[2018-08-23] MEDS: LEVOTHYROXINE 50 MCG TABLET PO SCH (13:21)
[2018-08-23] MEDS: SERTRALINE 50 MG TABLET PO SCH (13:22)
[2018-08-23] MEDS ORDERED: POTASSIUM CHLORIDE 20 MEQ TABLET PO ONE (14:51)
[2018-08-23] MEDS: cefTRIAXone 1,000 MG in SYRINGE 1 EACH IV SCH (15:22)
[2018-08-23] MEDS: LACTOBACILLUS ACIDOPHILUS/BULGARICUS CHEW TABLET PO SCH (16:44)
[2018-08-23] MEDS: CALCIUM (CARBONATE)/VITAMIN D 600 MG-400 UNIT TABLET PO SCH (20:27)
[2018-08-23] MEDS: ATORVASTATIN 40 MG TABLET PO SCH (20:27)
[2018-08-23] MEDS: MONTELUKAST 10 MG TABLET PO SCH (20:27)
[2018-08-23] MEDS ORDERED: CEFTAROLINE 600 MG in SODIUM CHLORIDE 0.9% 100 ML IV SCH (21:00)
[2018-08-24] MEDS: NICOTINE 21 MG/24 HR PATCH TRANSDERM PRN (01:37)
[2018-08-24] MEDS: traMADol 50 MG TABLET PO PRN ×3 (03:25→20:46)
[2018-08-24 05:25] LABS: Basophils # 0.1 10*3/uL (0.0-0.2); Basophils % 0.7 % (0.0-0.8); Eosinophils # 0.2 10*3/uL (0.0-0.87); Eosinophils % 2.6 % (0.00-10.9); Hematocrit 35.6 VOL% (42.0-52.0); Hemoglobin 11.6 GM/DL (14.0-18.0); Immature Granulocytes % 2.2 %; Immature Granulocytes Absolute 0.15 #; Lymphocytes # 1.8 10*3/uL (1.4-4.0); Lymphocytes % 25.6 % (21.2-54.2); Mean Corpuscular HGB Conc 32.6 GM/DL (32-36); Mean Corpuscular Hemoglobin 30 PG (27-34); Mean Corpuscular Volume 92.7 FL (87-102); Mean Platelet Volume 11.4 FL (9.6-12.0); Monocytes # 1.2 10*3/uL (0.11-0.8); Monocytes % 17.6 % (1.7-12.7); Neutrophils # 3.6 10*3/uL (1.4-7.4); Neutrophils % 51.3 % (38.7-73.9); Platelet Count 280 T/CUMM (130-400); Red Blood Count 3.84 MC/CUMM (3.8-5.5); White Blood Count 6.9 T/CUMM (4-12)
[2018-08-24] MEDS: SODIUM CHLORIDE 0.9% 1,000 ML IV SCH (05:50)
[2018-08-24 06:09] LABS: Calcium 8.4 MG/DL (8.5-10.1); Osmolality,Calculated 247.4 MOS/KG (273-304); Potassium 3.6 MMOL/L (3.5-5.1); Risk Ratio 2.09; Thyroid Stimulating Hormone 0.318 uIU/ml (0.358-3.74)
[2018-08-24 07:03] LABS: Burr Cells Slight; Eosinophils 3 % (0-10); Hypochromasia 1+; Lymphocytes 26 % (20-55); Microcytosis Slight; Myelocytes 1 %; Segmented Neutrophils 52 % (50-85); Total Cells Counted 100
[2018-08-24] MEDS: CALCIUM (CARBONATE)/VITAMIN D 600 MG-400 UNIT TABLET PO SCH ×2 (08:33→20:43)
[2018-08-24] MEDS: LACTOBACILLUS ACIDOPHILUS/BULGARICUS CHEW TABLET PO SCH (08:33)
[2018-08-24] MEDS: ASPIRIN EC 81 MG TABLET PO SCH (08:33)
[2018-08-24] MEDS: LEVOTHYROXINE 50 MCG TABLET PO SCH (08:33)
[2018-08-24] MEDS: SERTRALINE 50 MG TABLET PO SCH (08:34)
[2018-08-24] MEDS: cefTRIAXone 1,000 MG in SYRINGE 1 EACH IV SCH (08:57)
[2018-08-24] MEDS: ENOXAPARIN 40 MG/0.4 ML SYRINGE SUBCUT SCH (12:04)
[2018-08-24] MEDS: IBUPROFEN 600 MG TABLET PO PRN (18:38)
[2018-08-24] MEDS: ATORVASTATIN 40 MG TABLET PO SCH (20:44)
[2018-08-24] MEDS: MONTELUKAST 10 MG TABLET PO SCH (20:44)
[2018-08-25] MEDS: IBUPROFEN 600 MG TABLET PO PRN (02:03)
[2018-08-25] MEDS: NICOTINE 21 MG/24 HR PATCH TRANSDERM PRN (02:08)
[2018-08-25 05:57] LABS: Basophils # 0.1 10*3/uL (0.0-0.2); Basophils % 0.6 % (0.0-0.8); Eosinophils # 0.2 10*3/uL (0.0-0.87); Eosinophils % 2.8 % (0.00-10.9); Hematocrit 36.1 VOL% (42.0-52.0); Immature Granulocytes % 1.7 %; Immature Granulocytes Absolute 0.15 #; Lymphocytes # 2.7 10*3/uL (1.4-4.0); Lymphocytes % 31.4 % (21.2-54.2); Mean Corpuscular HGB Conc 33.2 GM/DL (32-36); Mean Corpuscular Hemoglobin 31 PG (27-34); Mean Corpuscular Volume 91.6 FL (87-102); Mean Platelet Volume 11.3 FL (9.6-12.0); Monocytes # 1.6 10*3/uL (0.11-0.8); Monocytes % 18.6 % (1.7-12.7); Neutrophils # 3.9 10*3/uL (1.4-7.4); Neutrophils % 44.9 % (38.7-73.9); Platelet Count 275 T/CUMM (130-400); Red Blood Count 3.94 MC/CUMM (3.8-5.5); Red Cell Distribution Width 13.7 % (9.3-17.3); White Blood Count 8.6 T/CUMM (4-12)
[2018-08-25 06:05] LABS: Blood Urea Nitrogen < 1 MG/DL (7-18); Calcium 8.8 MG/DL (8.5-10.1); Glucose 76 MG/DL (74-106); Osmolality,Calculated 247.7 MOS/KG (273-304); Potassium 3.5 MMOL/L (3.5-5.1); Sodium 126 MMOL/L (136-145)
[2018-08-25 06:30] LABS: Band Neutrophils 3 % (0-10); Eosinophils 5 % (0-10); Lymphocytes 28 % (20-55); Segmented Neutrophils 51 % (50-85); Total Cells Counted 100
[2018-08-25 06:31] LABS: Anisocytosis 1+; Platelet Estimate Adequate
[2018-08-25] MEDS ORDERED: OXcarbazepine 300 MG TABLET PO SCH (09:00)
[2018-08-25] MEDS ORDERED: amLODIPine 10 MG TABLET PO SCH (09:00)
[2018-08-25] MEDS ORDERED: risperiDONE 1 MG TABLET PO SCH (09:00)
[2018-08-25] MEDS ORDERED: METOPROLOL TARTRATE 25 MG TABLET PO SCH (09:00)
[2018-08-25] MEDS: LEVOTHYROXINE 50 MCG TABLET PO SCH (09:07)
[2018-08-25] MEDS: CALCIUM (CARBONATE)/VITAMIN D 600 MG-400 UNIT TABLET PO SCH (09:07)
[2018-08-25] MEDS: LACTOBACILLUS ACIDOPHILUS/BULGARICUS CHEW TABLET PO SCH (09:07)
[2018-08-25] MEDS: ASPIRIN EC 81 MG TABLET PO SCH (09:07)
[2018-08-25] MEDS: traMADol 50 MG TABLET PO PRN (09:10)
[2018-08-25] MEDS: SERTRALINE 50 MG TABLET PO SCH (09:10)
[2018-08-25] MEDS ORDERED: AMOXICILLIN/CLAV 875 MG TABLET PO SCH (09:30)
[2018-08-25 12:03] VITALS: BP 117/90
[2018-08-25] MEDS: cefTRIAXone 1,000 MG in SYRINGE 1 EACH IV SCH (12:10)
[2018-08-25] MEDS ORDERED: DIVALPROEX 500 MG TABLET PO SCH (21:00)
== END 2018-08-25 12:06 | DRG 603 ==
LOC: EDUNIT# → N.ED 01:55 → SUATTDRO 10:09 → N.EDINP 10:09 → N.2E 14:57
PROVIDERS: ADMIT Internal Medicine; ATTEND Emergency Medicine

== ENCOUNTER 2022-05-14 09:30 | Inpatient (IN) ==
[2022-05-14] MEDS ORDERED: ALBUTEROL/IPRATROPIUM 3 ML NEB RESP TX STA (10:07)
[2022-05-14] MEDS ORDERED: methylPREDNISolone SOD SUC 125 MG/2 ML VIAL IV STA (10:07)
[2022-05-14 10:14] LABS: Basophils % 0.2 % (0.0-0.8); Hematocrit 29.4 VOL% (42.0-52.0); Hemoglobin 9.9 GM/DL (14.0-18.0); Immature Granulocytes % 0.8 %; Immature Granulocytes Absolute 0.12 #; Lymphocytes # 1.7 10*3/uL (1.4-4.0); Lymphocytes % 11.2 % (21.2-54.2); Mean Corpuscular HGB Conc 33.7 GM/DL (32-36); Mean Corpuscular Volume 84.7 FL (87-102); Mean Platelet Volume 11.1 FL (9.6-12.0); Monocytes # 2.3 10*3/uL (0.11-0.8); Monocytes % 15.2 % (1.7-12.7); Neutrophils % 72.6 % (38.7-73.9); Platelet Count 284 T/CUMM (130-400); Red Blood Count 3.47 MC/CUMM (3.8-5.5); White Blood Count 15.3 T/CUMM (4-12)
[2022-05-14 11:08] LABS: CKMB % 8.31 %; Calcium 8.7 MG/DL (8.5-10.1); Osmolality,Calculated 239.3 MOS/KG (273-304); Potassium 4.3 MMOL/L (3.5-5.1)
[2022-05-14 11:10] LABS: High Sensitive Troponin I* 108633.6 ng/L (0-78)
[2022-05-14] MEDS ORDERED: ACETAMINOPHEN 325 MG TABLET PO PRN (12:11)
[2022-05-14] MEDS ORDERED: ONDANSETRON 4 MG/2 ML VIAL IV PRN (12:11)
[2022-05-14] MEDS ORDERED: ALBUTEROL/IPRATROPIUM 3 ML NEB RESP TX PRN (12:26)
[2022-05-14] MEDS ORDERED: ALUMINUM/MAGNES/SIMETH MAX STR 30 ML UDCUP PO PRN (12:26)
[2022-05-14] MEDS ORDERED: HYDROCORTISONE 25 MG SUPP RECTAL PRN (12:26)
[2022-05-14] MEDS ORDERED: FUROSEMIDE 40 MG TABLET PO SCH (12:30)
[2022-05-14] MEDS: ALBUTEROL/IPRATROPIUM 3 ML NEB RESP TX SCH ×2 (12:50→20:09)
[2022-05-14 12:56] LABS: Arterial Base Excess iSTAT 1 MMOL/L (-2.5-2.5); Arterial Bicarbonate iSTAT 23.9 MMOL/L (20-26); Arterial O2 Saturation iSTAT 90 % (95-100); Arterial PCO2 iSTAT 33 MM HG (35-48); Arterial PO2 iSTAT 54 MM HG (80-95); Arterial Total CO2 iSTAT 25 MMO/L (23-27); Arterial pH iSTAT 7.464 (7.35-7.45)
[2022-05-14] MEDS ORDERED: FUROSEMIDE 40 MG/4 ML VIAL IV STA (14:02)
[2022-05-14] MEDS: SODIUM CHLORIDE 0.9% 1,000 ML IV SCH ×2 (14:03→23:38)
[2022-05-14] MEDS: LEVOFLOXACIN INJ 750 MG/150 ML PREMIX IV SCH (14:06)
[2022-05-14] MEDS ORDERED: LOPERAMIDE 2 MG CAPSULE PO PRN (15:59)
[2022-05-14] MEDS: methylPREDNISolone SOD SUC 40 MG/1 ML VIAL IV SCH (17:15)
[2022-05-14] MEDS: ISOSORBIDE MONONITRATE 30 MG TABLET PO SCH (18:04)
[2022-05-14 18:55] LABS: Calcium 8.6 MG/DL (8.5-10.1); Osmolality,Calculated 241.3 MOS/KG (273-304); Potassium 4.7 MMOL/L (3.5-5.1)
[2022-05-14 20:11] LABS: Bilirubin,Urine Negative (Negative); Blood, Urine Negative (Negative); Glucose,Urine (UA) Negative (Negative); Ketones,Urine Negative (Negative); Nitrite,Urine Negative (Negative); Protein,Urine Negative (Negative); Urine Appearance Clear (Clear); Urine Color Yellow (Yellow); Urine Urobilinogen 0.2 eU/dL (<2.0)
[2022-05-14 20:13] LABS: Bacteria,Urine Occasional /HPF (Few); RBC,Urine <1 /HPF (0-4)
[2022-05-14] MEDS: BACILLUS COAGULANS CAPLET PO SCH (21:14)
[2022-05-14] MEDS: PREGABALIN 100 MG CAPSULE PO SCH (21:14)
[2022-05-14] MEDS: risperiDONE 0.5 MG TABLET PO SCH (21:15)
[2022-05-14] MEDS: MONTELUKAST 10 MG TABLET PO SCH (21:15)
[2022-05-14] MEDS: MIRTAZAPINE 15 MG TABLET PO SCH (21:15)
[2022-05-14] MEDS: DIVALPROEX 500 MG TABLET PO SCH (21:15)
[2022-05-14] MEDS: TAMSULOSIN 0.4 MG CAPSULE PO SCH (21:15)
[2022-05-14] MEDS: OXcarbazepine 300 MG TABLET PO SCH (21:15)
[2022-05-14] MEDS: METOPROLOL TARTRATE 25 MG TABLET PO SCH (21:15)
[2022-05-14] MEDS: ENOXAPARIN 40 MG/0.4 ML SYRINGE SUBCUT SCH (21:15)
[2022-05-14] MEDS: ATORVASTATIN 40 MG TABLET PO SCH (21:15)
[2022-05-14 22:35] LABS: Calcium 8.2 MG/DL (8.5-10.1); Osmolality,Calculated 251.6 MOS/KG (273-304); Potassium 4.2 MMOL/L (3.5-5.1)
[2022-05-15] MEDS: ALBUTEROL/IPRATROPIUM 3 ML NEB RESP TX SCH ×5 (00:36→23:35)
[2022-05-15 01:49] LABS: Calcium 8.6 MG/DL (8.5-10.1); Osmolality,Calculated 249.6 MOS/KG (273-304); Potassium 4.3 MMOL/L (3.5-5.1)
[2022-05-15] MEDS: methylPREDNISolone SOD SUC 40 MG/1 ML VIAL IV SCH ×3 (02:09→18:02)
[2022-05-15 04:56] LABS: Basophils % 0.1 % (0.0-0.8); Hematocrit 26.6 VOL% (42.0-52.0); Hemoglobin 9.2 GM/DL (14.0-18.0); Immature Granulocytes Absolute 0.12 #; Lymphocytes # 1.1 10*3/uL (1.4-4.0); Lymphocytes % 9.8 % (21.2-54.2); Mean Corpuscular HGB Conc 34.6 GM/DL (32-36); Mean Corpuscular Volume 83.1 FL (87-102); Mean Platelet Volume 11.8 FL (9.6-12.0); Monocytes # 1.8 10*3/uL (0.11-0.8); Monocytes % 15.5 % (1.7-12.7); Neutrophils % 73.6 % (38.7-73.9); Platelet Count 241 T/CUMM (130-400); Red Cell Distribution Width 14.2 % (9.3-17.3); White Blood Count 11.6 T/CUMM (4-12)
[2022-05-15 05:28] LABS: Calcium 8.6 MG/DL (8.5-10.1); Osmolality,Calculated 255.2 MOS/KG (273-304); Potassium 4.4 MMOL/L (3.5-5.1); Risk Ratio 2.29; Thyroid Stimulating Hormone 0.906 uIU/ml (0.358-3.74)
[2022-05-15] MEDS: LEVOTHYROXINE 50 MCG TABLET PO SCH (06:05)
[2022-05-15] MEDS ORDERED: MAGNESIUM SULF RIDER 2 GM/50 ML PREMIX IV ONE (07:42)
[2022-05-15] MEDS ORDERED: amLODIPine 10 MG TABLET PO SCH (09:00)
[2022-05-15] MEDS ORDERED: LIDOCAINE 5% PATCH TRANSDERM PRN (09:00)
[2022-05-15] MEDS ORDERED: MAGNESIUM SULF RIDER 2 GM/50 ML PREMIX IV PRN (09:07)
[2022-05-15] MEDS: MELOXICAM 7.5 MG TABLET PO SCH (09:07)
[2022-05-15] MEDS: BACILLUS COAGULANS CAPLET PO SCH ×2 (09:07→21:59)
[2022-05-15] MEDS: VALSARTAN 80 MG TABLET PO SCH (09:07)
[2022-05-15] MEDS ORDERED: POTASSIUM CHLORIDE RIDER 10 MEQ/100 ML PREMIX IV PRN (09:07)
[2022-05-15] MEDS: CETIRIZINE 10 MG TABLET PO SCH (09:08)
[2022-05-15] MEDS: ISOSORBIDE MONONITRATE 30 MG TABLET PO SCH (09:08)
[2022-05-15] MEDS: DIVALPROEX 500 MG TABLET PO SCH ×2 (09:08→21:59)
[2022-05-15] MEDS: ASPIRIN EC 81 MG TABLET PO SCH (09:08)
[2022-05-15] MEDS: METOPROLOL TARTRATE 25 MG TABLET PO SCH ×2 (09:08→22:00)
[2022-05-15] MEDS: MULTIVITAMIN (CENTRUM) TABLET PO SCH (09:08)
[2022-05-15] MEDS: CALCIUM (CARBONATE)/VITAMIN D 600 MG-400 UNIT TABLET PO SCH (09:09)
[2022-05-15] MEDS: ASCORBIC ACID 500 MG TABLET PO SCH ×2 (09:09→21:58)
[2022-05-15] MEDS: POTASSIUM CHLORIDE 20 MEQ TABLET PO SCH (09:09)
[2022-05-15] MEDS: risperiDONE 0.5 MG TABLET PO SCH ×2 (09:09→21:59)
[2022-05-15] MEDS: OXcarbazepine 300 MG TABLET PO SCH ×2 (09:09→21:59)
[2022-05-15] MEDS: SERTRALINE 100 MG TABLET PO SCH (09:10)
[2022-05-15] MEDS: PANTOPRAZOLE 40 MG TABLET PO SCH (09:10)
[2022-05-15] MEDS: PREGABALIN 100 MG CAPSULE PO SCH ×2 (09:10→21:58)
[2022-05-15] MEDS: FUROSEMIDE 40 MG/4 ML VIAL IV SCH ×2 (09:11→16:47)
[2022-05-15] MEDS: FLUTICASONE 50 MCG NASAL SPRAY 16 GM BOTTLE BOTH NARES SCH (09:12)
[2022-05-15] MEDS ORDERED: CLOPIDOGREL 75 MG TABLET PO ONE (09:30)
[2022-05-15] MEDS: LEVOFLOXACIN INJ 750 MG/150 ML PREMIX IV SCH (12:55)
[2022-05-15] MEDS: SODIUM CHLORIDE 0.9% 1,000 ML IV SCH (16:45)
[2022-05-15] MEDS: ATORVASTATIN 40 MG TABLET PO SCH (21:58)
[2022-05-15] MEDS: MONTELUKAST 10 MG TABLET PO SCH (21:59)
[2022-05-15] MEDS: MIRTAZAPINE 15 MG TABLET PO SCH (21:59)
[2022-05-15] MEDS: TAMSULOSIN 0.4 MG CAPSULE PO SCH (21:59)
[2022-05-15] MEDS: ENOXAPARIN 40 MG/0.4 ML SYRINGE SUBCUT SCH (21:59)
[2022-05-16] MEDS: methylPREDNISolone SOD SUC 40 MG/1 ML VIAL IV SCH ×3 (01:44→17:41)
[2022-05-16 04:46] LABS: Basophils % 0.2 % (0.0-0.8); Hematocrit 26.9 VOL% (42.0-52.0); Hemoglobin 8.9 GM/DL (14.0-18.0); Immature Granulocytes % 1.2 %; Immature Granulocytes Absolute 0.15 #; Lymphocytes # 1.2 10*3/uL (1.4-4.0); Lymphocytes % 9.6 % (21.2-54.2); Mean Corpuscular HGB Conc 33.1 GM/DL (32-36); Mean Corpuscular Volume 85.7 FL (87-102); Mean Platelet Volume 11.8 FL (9.6-12.0); Monocytes # 1.5 10*3/uL (0.11-0.8); Monocytes % 11.7 % (1.7-12.7); Neutrophils % 77.3 % (38.7-73.9); Platelet Count 247 T/CUMM (130-400); Red Blood Count 3.14 MC/CUMM (3.8-5.5); Red Cell Distribution Width 14.4 % (9.3-17.3); White Blood Count 12.9 T/CUMM (4-12)
[2022-05-16 05:15] LABS: Calcium 8.4 MG/DL (8.5-10.1); Osmolality,Calculated 260.1 MOS/KG (273-304); Potassium 4.3 MMOL/L (3.5-5.1)
[2022-05-16] MEDS: LEVOTHYROXINE 50 MCG TABLET PO SCH (05:44)
[2022-05-16] MEDS: SODIUM CHLORIDE 0.9% 1,000 ML IV SCH ×2 (05:44→22:42)
[2022-05-16] MEDS: ALBUTEROL/IPRATROPIUM 3 ML NEB RESP TX SCH ×3 (06:56→20:59)
[2022-05-16] MEDS ORDERED: CLOPIDOGREL 75 MG TABLET PO ONE (09:00)
[2022-05-16] MEDS: ISOSORBIDE MONONITRATE 30 MG TABLET PO SCH (09:22)
[2022-05-16] MEDS: POTASSIUM CHLORIDE 20 MEQ TABLET PO SCH (09:22)
[2022-05-16] MEDS: MELOXICAM 7.5 MG TABLET PO SCH (09:22)
[2022-05-16] MEDS: BACILLUS COAGULANS CAPLET PO SCH ×2 (09:22→22:43)
[2022-05-16] MEDS: ASPIRIN EC 81 MG TABLET PO SCH (09:22)
[2022-05-16] MEDS: CALCIUM (CARBONATE)/VITAMIN D 600 MG-400 UNIT TABLET PO SCH (09:23)
[2022-05-16] MEDS: risperiDONE 0.5 MG TABLET PO SCH ×2 (09:23→22:43)
[2022-05-16] MEDS: PREGABALIN 100 MG CAPSULE PO SCH ×2 (09:23→22:44)
[2022-05-16] MEDS: MULTIVITAMIN (CENTRUM) TABLET PO SCH (09:23)
[2022-05-16] MEDS: OXcarbazepine 300 MG TABLET PO SCH ×2 (09:23→22:44)
[2022-05-16] MEDS: SERTRALINE 100 MG TABLET PO SCH (09:23)
[2022-05-16] MEDS: VALSARTAN 80 MG TABLET PO SCH (09:23)
[2022-05-16] MEDS: PANTOPRAZOLE 40 MG TABLET PO SCH (09:23)
[2022-05-16] MEDS: ASCORBIC ACID 500 MG TABLET PO SCH ×2 (09:23→22:44)
[2022-05-16] MEDS: DIVALPROEX 500 MG TABLET PO SCH ×2 (09:23→22:44)
[2022-05-16] MEDS: CETIRIZINE 10 MG TABLET PO SCH (09:23)
[2022-05-16] MEDS: FUROSEMIDE 40 MG/4 ML VIAL IV SCH ×2 (09:25→17:40)
[2022-05-16] MEDS: FLUTICASONE 50 MCG NASAL SPRAY 16 GM BOTTLE BOTH NARES SCH (09:26)
[2022-05-16] MEDS: METOPROLOL TARTRATE 25 MG TABLET PO SCH ×2 (09:26→22:44)
[2022-05-16] MEDS: LEVOFLOXACIN INJ 750 MG/150 ML PREMIX IV SCH (13:38)
[2022-05-16] MEDS ORDERED: HEPARIN/NACL 0.9% 2 UNITS/ML 3,000 UNIT/1,500 ML BAG IV ONE (15:00)
[2022-05-16] MEDS ORDERED: HEPARIN/NACL 0.9% 2 UNITS/ML 2,000 UNIT/1,000 ML BAG IV ONE (15:30)
[2022-05-16] MEDS ORDERED: fentaNYL 100 MCG/2 ML VIAL ONE (15:30)
[2022-05-16] MEDS ORDERED: MIDAZOLAM 2 MG/2 ML VIAL ONE (15:30)
[2022-05-16] MEDS: ENOXAPARIN 40 MG/0.4 ML SYRINGE SUBCUT SCH (22:43)
[2022-05-16] MEDS: TAMSULOSIN 0.4 MG CAPSULE PO SCH (22:43)
[2022-05-16] MEDS: MIRTAZAPINE 15 MG TABLET PO SCH (22:43)
[2022-05-16] MEDS: MONTELUKAST 10 MG TABLET PO SCH (22:44)
[2022-05-16] MEDS: ATORVASTATIN 40 MG TABLET PO SCH (22:44)
[2022-05-17] MEDS: methylPREDNISolone SOD SUC 40 MG/1 ML VIAL IV SCH ×3 (02:30→17:28)
[2022-05-17] MEDS: ALBUTEROL/IPRATROPIUM 3 ML NEB RESP TX SCH ×4 (02:54→20:40)
[2022-05-17 04:23] LABS: Basophils % 0.1 % (0.0-0.8); Hematocrit 27.6 VOL% (42.0-52.0); Hemoglobin 9.2 GM/DL (14.0-18.0); Immature Granulocytes Absolute 0.13 #; Lymphocytes # 1.8 10*3/uL (1.4-4.0); Mean Corpuscular HGB Conc 33.3 GM/DL (32-36); Mean Corpuscular Volume 85.4 FL (87-102); Mean Platelet Volume 11.1 FL (9.6-12.0); Monocytes # 1.8 10*3/uL (0.11-0.8); Monocytes % 14.1 % (1.7-12.7); Neutrophils % 70.8 % (38.7-73.9); Platelet Count 259 T/CUMM (130-400); Red Blood Count 3.23 MC/CUMM (3.8-5.5); Red Cell Distribution Width 14.4 % (9.3-17.3); White Blood Count 12.5 T/CUMM (4-12)
[2022-05-17 04:44] LABS: Calcium 8.4 MG/DL (8.5-10.1); Osmolality,Calculated 262.8 MOS/KG (273-304); Potassium 3.7 MMOL/L (3.5-5.1)
[2022-05-17 04:50] LABS: Alanine Aminotransferase 20 U/L (16-61); Albumin 2.8 G/DL (3.4-5.0); Alkaline Phosphatase 65 U/L (45-117); Aspartate Amino Transferase 30 U/L (0-37); Bilirubin,Total < 0.39 MG/DL (0.20-1.00); Blood Urea Nitrogen 16 MG/DL (7-18); Calcium 8.7 MG/DL (8.5-10.1); Carbon Dioxide 32 MMOL/L (21-32); Chloride 94 MMOL/L (98-107); Glucose 132 MG/DL (74-106); Osmolality,Calculated 264.7 MOS/KG (273-304); Potassium 3.7 MMOL/L (3.5-5.1); Sodium 131 MMOL/L (136-145); Total Protein 6.1 G/DL (6.4-8.2)
[2022-05-17] MEDS: LEVOTHYROXINE 50 MCG TABLET PO SCH (05:42)
[2022-05-17] MEDS: CALCIUM (CARBONATE)/VITAMIN D 600 MG-400 UNIT TABLET PO SCH (09:40)
[2022-05-17] MEDS: POTASSIUM CHLORIDE 20 MEQ TABLET PO SCH (09:40)
[2022-05-17] MEDS: DIVALPROEX 500 MG TABLET PO SCH ×2 (09:40→21:13)
[2022-05-17] MEDS: BACILLUS COAGULANS CAPLET PO SCH ×2 (09:40→21:13)
[2022-05-17] MEDS: ASCORBIC ACID 500 MG TABLET PO SCH ×2 (09:40→21:13)
[2022-05-17] MEDS: CETIRIZINE 10 MG TABLET PO SCH (09:40)
[2022-05-17] MEDS: OXcarbazepine 300 MG TABLET PO SCH ×2 (09:40→21:13)
[2022-05-17] MEDS: PANTOPRAZOLE 40 MG TABLET PO SCH (09:40)
[2022-05-17] MEDS: MELOXICAM 7.5 MG TABLET PO SCH (09:40)
[2022-05-17] MEDS: VALSARTAN 80 MG TABLET PO SCH (09:40)
[2022-05-17] MEDS: MULTIVITAMIN (CENTRUM) TABLET PO SCH (09:41)
[2022-05-17] MEDS: SERTRALINE 100 MG TABLET PO SCH (09:41)
[2022-05-17] MEDS: risperiDONE 0.5 MG TABLET PO SCH ×2 (09:41→21:14)
[2022-05-17] MEDS: ASPIRIN EC 81 MG TABLET PO SCH (09:41)
[2022-05-17] MEDS: ISOSORBIDE MONONITRATE 30 MG TABLET PO SCH (09:41)
[2022-05-17] MEDS: PREGABALIN 100 MG CAPSULE PO SCH ×2 (09:41→21:14)
[2022-05-17] MEDS: METOPROLOL TARTRATE 25 MG TABLET PO SCH ×2 (09:41→21:13)
[2022-05-17] MEDS: FUROSEMIDE 40 MG/4 ML VIAL IV SCH ×2 (09:42→17:28)
[2022-05-17] MEDS: FLUTICASONE 50 MCG NASAL SPRAY 16 GM BOTTLE BOTH NARES SCH (09:43)
[2022-05-17] MEDS: SODIUM CHLORIDE 0.9% 1,000 ML IV SCH (09:49)
[2022-05-17] MEDS: LEVOFLOXACIN INJ 750 MG/150 ML PREMIX IV SCH (14:13)
[2022-05-17] MEDS: MONTELUKAST 10 MG TABLET PO SCH (21:13)
[2022-05-17] MEDS: ATORVASTATIN 40 MG TABLET PO SCH (21:13)
[2022-05-17] MEDS: TAMSULOSIN 0.4 MG CAPSULE PO SCH (21:13)
[2022-05-17] MEDS: ENOXAPARIN 40 MG/0.4 ML SYRINGE SUBCUT SCH (21:14)
[2022-05-17] MEDS: MIRTAZAPINE 15 MG TABLET PO SCH (21:19)
[2022-05-18] MEDS: ALBUTEROL/IPRATROPIUM 3 ML NEB RESP TX SCH ×3 (00:45→12:57)
[2022-05-18] MEDS: methylPREDNISolone SOD SUC 40 MG/1 ML VIAL IV SCH ×3 (01:46→17:46)
[2022-05-18] MEDS: LEVOTHYROXINE 50 MCG TABLET PO SCH (06:06)
[2022-05-18] MEDS: SERTRALINE 100 MG TABLET PO SCH (09:02)
[2022-05-18] MEDS: risperiDONE 0.5 MG TABLET PO SCH (09:02)
[2022-05-18] MEDS: FUROSEMIDE 40 MG/4 ML VIAL IV SCH ×2 (09:02→15:05)
[2022-05-18] MEDS: BACILLUS COAGULANS CAPLET PO SCH (09:02)
[2022-05-18] MEDS: MELOXICAM 7.5 MG TABLET PO SCH (09:03)
[2022-05-18] MEDS: VALSARTAN 80 MG TABLET PO SCH (09:03)
[2022-05-18] MEDS: CALCIUM (CARBONATE)/VITAMIN D 600 MG-400 UNIT TABLET PO SCH (09:03)
[2022-05-18] MEDS: METOPROLOL TARTRATE 25 MG TABLET PO SCH (09:04)
[2022-05-18] MEDS: ASCORBIC ACID 500 MG TABLET PO SCH (09:04)
[2022-05-18] MEDS: PREGABALIN 100 MG CAPSULE PO SCH (09:04)
[2022-05-18] MEDS: MULTIVITAMIN (CENTRUM) TABLET PO SCH (09:04)
[2022-05-18] MEDS: ISOSORBIDE MONONITRATE 30 MG TABLET PO SCH (09:04)
[2022-05-18] MEDS: CETIRIZINE 10 MG TABLET PO SCH (09:04)
[2022-05-18] MEDS: ASPIRIN EC 81 MG TABLET PO SCH (09:04)
[2022-05-18] MEDS: OXcarbazepine 300 MG TABLET PO SCH (09:05)
[2022-05-18] MEDS: FLUTICASONE 50 MCG NASAL SPRAY 16 GM BOTTLE BOTH NARES SCH (09:05)
[2022-05-18] MEDS: PANTOPRAZOLE 40 MG TABLET PO SCH (09:05)
[2022-05-18] MEDS: POTASSIUM CHLORIDE 20 MEQ TABLET PO SCH (09:05)
[2022-05-18] MEDS: DIVALPROEX 500 MG TABLET PO SCH (09:14)
[2022-05-18 10:56] LABS: Basophils % 0.1 % (0.0-0.8); Eosinophils % 0.2 % (0.00-10.9); Hematocrit 31.8 VOL% (42.0-52.0); Hemoglobin 10.4 GM/DL (14.0-18.0); Immature Granulocytes % 1.6 %; Immature Granulocytes Absolute 0.19 #; Lymphocytes # 1.7 10*3/uL (1.4-4.0); Lymphocytes % 14.1 % (21.2-54.2); Mean Corpuscular HGB Conc 32.7 GM/DL (32-36); Mean Corpuscular Volume 86.4 FL (87-102); Mean Platelet Volume 10.7 FL (9.6-12.0); Monocytes # 1.5 10*3/uL (0.11-0.8); Monocytes % 11.9 % (1.7-12.7); Neutrophils % 72.1 % (38.7-73.9); Platelet Count 264 T/CUMM (130-400); Red Blood Count 3.68 MC/CUMM (3.8-5.5); Red Cell Distribution Width 14.6 % (9.3-17.3); White Blood Count 12.2 T/CUMM (4-12)
[2022-05-18 11:13] LABS: Calcium 9.1 MG/DL (8.5-10.1); Osmolality,Calculated 268.4 MOS/KG (273-304); Potassium 3.8 MMOL/L (3.5-5.1)
[2022-05-18] MEDS: LEVOFLOXACIN INJ 750 MG/150 ML PREMIX IV SCH (12:14)
[2022-05-18 17:37] VITALS: BP 104/67
== END 2022-05-18 20:09 | disposition hospice, home (50) | DRG 280 ==
LOC: EDUNIT# → EDBD → N.ED 09:30 → N.TELEN 12:11 → SUATTDRO 12:11 → N.TELEN 16:10
PROVIDERS: ADMIT Phlebology; ATTEND Internal Medicine

== ENCOUNTER 2022-07-26 11:23 | Inpatient (IN) ==
[2022-07-26] MEDS ORDERED: ASPIRIN 325 MG TABLET PO STA (11:50)
[2022-07-26] MEDS ORDERED: ALBUTEROL 2.5 MG/3 ML NEB RESP TX STA (11:50)
[2022-07-26] MEDS ORDERED: ALBUTEROL/IPRATROPIUM 3 ML NEB RESP TX STA (11:50)
[2022-07-26] MEDS ORDERED: methylPREDNISolone SOD SUC 125 MG/2 ML VIAL IV STA (11:50)
[2022-07-26 12:06] LABS: Basophils % 0.1 % (0.0-0.8); Hematocrit 29.5 VOL% (42.0-52.0); Hemoglobin 9.7 GM/DL (14.0-18.0); Immature Granulocytes % 1.5 %; Immature Granulocytes Absolute 0.38 #; Lymphocytes # 1.1 10*3/uL (1.4-4.0); Lymphocytes % 4.5 % (21.2-54.2); Mean Corpuscular HGB Conc 32.9 GM/DL (32-36); Mean Platelet Volume 10.9 FL (9.6-12.0); Monocytes # 2.3 10*3/uL (0.11-0.8); Neutrophils % 84.9 % (38.7-73.9); Platelet Count 290 T/CUMM (130-400); Red Blood Count 3.47 MC/CUMM (3.8-5.5); Red Cell Distribution Width 18.2 % (9.3-17.3); White Blood Count 24.88 T/CUMM (4-12)
[2022-07-26 12:17] LABS: PT Patient Result 10.9 SECS (10.1-12.1)
[2022-07-26 12:23] LABS: Albumin 2.6 G/DL (3.4-5.0); Bilirubin,Total 0.4 MG/DL (0.20-1.00); Calcium 8.6 MG/DL (8.5-10.1); Osmolality,Calculated 266.2 MOS/KG (273-304); Potassium 3.5 MMOL/L (3.5-5.1); Total Protein 6.1 G/DL (6.4-8.2)
[2022-07-26 12:38] LABS: Arterial Base Excess iSTAT 4 MMOL/L (-2.5-2.5); Arterial Bicarbonate iSTAT 28.9 MMOL/L (20-26); Arterial O2 Saturation iSTAT 97 % (95-100); Arterial PCO2 iSTAT 43 MM HG (35-48); Arterial PO2 iSTAT 88 MM HG (80-95); Arterial Total CO2 iSTAT 30 MMO/L (23-27); Arterial pH iSTAT 7.439 (7.35-7.45)
[2022-07-26] MEDS ORDERED: SODIUM CHLORIDE 0.9% 1,000 ML IV STA (12:47)
[2022-07-26] MEDS ORDERED: VANCOMYCIN INJ 1,000 MG in SODIUM CHLORIDE 0.9% 250 ML IV STA (12:58)
[2022-07-26] MEDS ORDERED: PIPERACILLIN/TAZOBACTAM 3,375 MG in SODIUM CHLORIDE 0.9% 100 ML IV STA (12:58)
[2022-07-26 13:04] LABS: Amorphous Crystals,Urine Few /HPF (Few); Hyaline Casts,Urine 3 /LPF (0-3); Mucus,Urine Occasional /LPF (Occasional); RBC,Urine 5 /HPF (0-4); Urine Color Yellow (Yellow)
[2022-07-26 13:05] LABS: Bilirubin,Urine Negative (Negative); Blood, Urine Small mg/dL (Negative); Glucose,Urine (UA) 500 mg/dL (Negative); Ketones,Urine Negative (Negative); Nitrite,Urine Positive (Negative); Protein,Urine Trace mg/dL (Negative); Urine Appearance Slightly Cloudy (Clear); Urine Urobilinogen 0.2 eU/dL (<2.0)
[2022-07-26 13:11] LABS: Band Neutrophils 15 % (0-10); Lymphocytes 3 % (20-55); Platelet Estimate Normal
[2022-07-26 13:12] LABS: Ovalocytes Slight; Polychromasia Few
[2022-07-26 13:13] LABS: Burr Cells Slight
[2022-07-26 13:14] LABS: Total Cells Counted 100
[2022-07-26] MEDS ORDERED: ACETAMINOPHEN 325 MG TABLET PO PRN (15:25)
[2022-07-26] MEDS ORDERED: ALBUTEROL 2.5 MG/3 ML NEB RESP TX PRN (15:25)
[2022-07-26] MEDS ORDERED: ONDANSETRON 4 MG/2 ML VIAL IV PRN (15:25)
[2022-07-26] MEDS ORDERED: ALUMINUM/MAGNES/SIMETH MAX STR 30 ML UDCUP PO PRN (15:29)
[2022-07-26] MEDS ORDERED: LACTATED RINGERS 1,000 ML IV SCH (15:30)
[2022-07-26] MEDS ORDERED: DEXTROSE 10% 250 ML BAG IV PRN (16:16)
[2022-07-26] MEDS: PANTOPRAZOLE 40 MG VIAL IV SCH (18:37)
[2022-07-26] MEDS: ENOXAPARIN 40 MG/0.4 ML SYRINGE SUBCUT SCH (18:38)
[2022-07-26] MEDS: cefTRIAXone 1,000 MG in SODIUM CHLORIDE 0.9% 100 ML IV SCH (18:40)
[2022-07-26] MEDS: INSULIN LISPRO 100 UNIT/ML SUBCUT SCH ×2 (18:41→21:06)
[2022-07-26] MEDS: LACTATED RINGERS 1,000 ML IV SCH ×2 (18:41→23:56)
[2022-07-26] MEDS: ALBUTEROL 2.5 MG/3 ML NEB RESP TX SCH (19:01)
[2022-07-26] MEDS: TAMSULOSIN 0.4 MG CAPSULE PO SCH (21:00)
[2022-07-26] MEDS ORDERED: methylPREDNISolone SOD SUC 40 MG/1 ML VIAL IV SCH (21:00)
[2022-07-26] MEDS: DIVALPROEX 500 MG TABLET PO SCH (21:00)
[2022-07-26] MEDS: ATORVASTATIN 40 MG TABLET PO SCH (21:00)
[2022-07-26] MEDS: methylPREDNISolone SOD SUC 40 MG/1 ML VIAL IV SCH (21:01)
[2022-07-26] MEDS: [UNRECOGNIZED DRUG - MIXTURE] INH SCH (21:01)
[2022-07-26] MEDS: risperiDONE 0.5 MG TABLET PO SCH (21:01)
[2022-07-27] MEDS: ALBUTEROL 2.5 MG/3 ML NEB RESP TX SCH ×4 (01:35→19:10)
[2022-07-27 04:18] LABS: Arterial Base Excess iSTAT 2 MMOL/L (-2.5-2.5); Arterial Bicarbonate iSTAT 26.6 MMOL/L (20-26); Arterial O2 Saturation iSTAT 95 % (95-100); Arterial PCO2 iSTAT 40 MM HG (35-48); Arterial PO2 iSTAT 73 MM HG (80-95); Arterial Total CO2 iSTAT 28 MMO/L (23-27); Arterial pH iSTAT 7.427 (7.35-7.45)
[2022-07-27] MEDS: LACTATED RINGERS 1,000 ML IV SCH ×3 (04:24→17:48)
[2022-07-27 05:54] LABS: Basophils % 0.1 % (0.0-0.8); Hematocrit 26.5 VOL% (42.0-52.0); Hemoglobin 8.7 GM/DL (14.0-18.0); Immature Granulocytes % 0.9 %; Immature Granulocytes Absolute 0.13 #; Lymphocytes # 1.1 10*3/uL (1.4-4.0); Lymphocytes % 7.3 % (21.2-54.2); Mean Corpuscular HGB Conc 32.8 GM/DL (32-36); Mean Corpuscular Volume 85.8 FL (87-102); Mean Platelet Volume 11.1 FL (9.6-12.0); Monocytes # 1.3 10*3/uL (0.11-0.8); Monocytes % 8.8 % (1.7-12.7); Neutrophils % 82.9 % (38.7-73.9); Platelet Count 266 T/CUMM (130-400); Red Blood Count 3.09 MC/CUMM (3.8-5.5); Red Cell Distribution Width 18.5 % (9.3-17.3); White Blood Count 15.03 T/CUMM (4-12)
[2022-07-27] MEDS: LEVOTHYROXINE 50 MCG TABLET PO SCH (06:24)
[2022-07-27 06:29] LABS: Calcium 8.9 MG/DL (8.5-10.1); Osmolality,Calculated 269.2 MOS/KG (273-304); Thyroid Stimulating Hormone 0.511 uIU/ml (0.358-3.74)
[2022-07-27] MEDS: INSULIN LISPRO 100 UNIT/ML SUBCUT SCH ×4 (07:54→20:09)
[2022-07-27] MEDS: [UNRECOGNIZED DRUG - MIXTURE] INH SCH ×2 (08:43→22:05)
[2022-07-27] MEDS: risperiDONE 0.5 MG TABLET PO SCH ×2 (08:48→20:09)
[2022-07-27] MEDS: DIVALPROEX 500 MG TABLET PO SCH ×2 (08:48→20:09)
[2022-07-27] MEDS: TAMSULOSIN 0.4 MG CAPSULE PO SCH ×2 (08:48→20:09)
[2022-07-27] MEDS: CLOPIDOGREL 75 MG TABLET PO SCH (08:48)
[2022-07-27] MEDS: ASPIRIN EC 81 MG TABLET PO SCH (08:48)
[2022-07-27] MEDS: methylPREDNISolone SOD SUC 40 MG/1 ML VIAL IV SCH ×2 (08:49→20:09)
[2022-07-27] MEDS: NICOTINE 14 MG/24 HR PATCH TRANSDERM SCH (09:36)
[2022-07-27] MEDS: OXcarbazepine 300 MG TABLET PO SCH ×2 (09:40→20:09)
[2022-07-27] MEDS: ENOXAPARIN 40 MG/0.4 ML SYRINGE SUBCUT SCH (15:06)
[2022-07-27] MEDS: cefTRIAXone 1,000 MG in SODIUM CHLORIDE 0.9% 100 ML IV SCH (15:06)
[2022-07-27] MEDS: PANTOPRAZOLE 40 MG VIAL IV SCH (15:06)
[2022-07-27] MEDS: LEVOFLOXACIN 750 MG TABLET PO SCH (16:17)
[2022-07-27] MEDS: ATORVASTATIN 40 MG TABLET PO SCH (20:09)
[2022-07-27] MEDS: ZINC OXIDE 16% PASTE 57 GM TUBE TOP SCH (20:15)
[2022-07-27] MEDS ORDERED: guaiFENesin 200 MG/10 ML UDCUP PO PRN (22:43)
[2022-07-28] MEDS: ALBUTEROL 2.5 MG/3 ML NEB RESP TX SCH ×4 (00:13→19:05)
[2022-07-28] MEDS: LACTATED RINGERS 1,000 ML IV SCH (02:39)
[2022-07-28 04:10] LABS: Arterial Base Excess iSTAT 2 MMOL/L (-2.5-2.5); Arterial Bicarbonate iSTAT 27.1 MMOL/L (20-26); Arterial O2 Saturation iSTAT 94 % (95-100); Arterial PCO2 iSTAT 42 MM HG (35-48); Arterial PO2 iSTAT 71 MM HG (80-95); Arterial Total CO2 iSTAT 28 MMO/L (23-27); Arterial pH iSTAT 7.418 (7.35-7.45)
[2022-07-28] MEDS: LEVOTHYROXINE 50 MCG TABLET PO SCH (05:29)
[2022-07-28 05:32] LABS: Basophils % 0.3 % (0.0-0.8); Hematocrit 29.1 VOL% (42.0-52.0); Hemoglobin 9.3 GM/DL (14.0-18.0); Immature Granulocytes % 4.5 %; Immature Granulocytes Absolute 0.64 #; Lymphocytes # 1.3 10*3/uL (1.4-4.0); Lymphocytes % 9.2 % (21.2-54.2); Mean Corpuscular Volume 84.6 FL (87-102); Mean Platelet Volume 11.3 FL (9.6-12.0); Monocytes # 1.2 10*3/uL (0.11-0.8); Monocytes % 8.1 % (1.7-12.7); Neutrophils % 77.9 % (38.7-73.9); Platelet Count 287 T/CUMM (130-400); Red Blood Count 3.44 MC/CUMM (3.8-5.5); Red Cell Distribution Width 18.3 % (9.3-17.3); White Blood Count 14.24 T/CUMM (4-12)
[2022-07-28 05:55] LABS: Band Neutrophils 2 % (0-10); Hypochromia Slight; Lymphocytes 8 % (20-55); Osmolality,Calculated 263.7 MOS/KG (273-304); Platelet Estimate Normal; Potassium 4.2 MMOL/L (3.5-5.1); Total Cells Counted 100
[2022-07-28] MEDS: INSULIN LISPRO 100 UNIT/ML SUBCUT SCH ×4 (07:32→21:10)
[2022-07-28] MEDS: LEVOFLOXACIN 750 MG TABLET PO SCH (08:56)
[2022-07-28] MEDS: NICOTINE 14 MG/24 HR PATCH TRANSDERM SCH (08:56)
[2022-07-28] MEDS: TAMSULOSIN 0.4 MG CAPSULE PO SCH ×2 (08:56→20:43)
[2022-07-28] MEDS: CLOPIDOGREL 75 MG TABLET PO SCH (08:56)
[2022-07-28] MEDS: ASPIRIN EC 81 MG TABLET PO SCH (08:56)
[2022-07-28] MEDS: risperiDONE 0.5 MG TABLET PO SCH ×2 (08:56→20:43)
[2022-07-28] MEDS: DIVALPROEX 500 MG TABLET PO SCH ×2 (08:56→20:43)
[2022-07-28] MEDS: OXcarbazepine 300 MG TABLET PO SCH ×2 (08:56→20:43)
[2022-07-28] MEDS: ZINC OXIDE 16% PASTE 57 GM TUBE TOP SCH ×2 (08:56→20:44)
[2022-07-28] MEDS: [UNRECOGNIZED DRUG - MIXTURE] INH SCH ×2 (09:03→21:06)
[2022-07-28] MEDS: methylPREDNISolone SOD SUC 40 MG/1 ML VIAL IV SCH ×2 (09:29→20:44)
[2022-07-28] MEDS ORDERED: FUROSEMIDE 40 MG/4 ML VIAL IV ONE (10:30)
[2022-07-28] MEDS: ENOXAPARIN 40 MG/0.4 ML SYRINGE SUBCUT SCH (14:47)
[2022-07-28] MEDS: PANTOPRAZOLE 40 MG VIAL IV SCH (14:48)
[2022-07-28] MEDS: cefTRIAXone 1,000 MG in SODIUM CHLORIDE 0.9% 100 ML IV SCH (16:14)
[2022-07-28] MEDS: ATORVASTATIN 40 MG TABLET PO SCH (20:43)
[2022-07-28] MEDS: PREGABALIN 100 MG CAPSULE PO SCH (20:43)
[2022-07-28] MEDS: METOPROLOL TARTRATE 25 MG TABLET PO SCH (20:43)
[2022-07-29] MEDS: ALBUTEROL 2.5 MG/3 ML NEB RESP TX SCH ×4 (00:11→19:21)
[2022-07-29 05:49] LABS: Basophils # 0.1 10*3/uL (0.0-0.2); Basophils % 0.7 % (0.0-0.8); Hematocrit 31.6 VOL% (42.0-52.0); Hemoglobin 10.4 GM/DL (14.0-18.0); Immature Granulocytes % 5.9 %; Immature Granulocytes Absolute 0.66 #; Lymphocytes # 1.3 10*3/uL (1.4-4.0); Lymphocytes % 11.9 % (21.2-54.2); Mean Corpuscular HGB Conc 32.9 GM/DL (32-36); Mean Platelet Volume 11.3 FL (9.6-12.0); Monocytes # 0.9 10*3/uL (0.11-0.8); Monocytes % 7.7 % (1.7-12.7); Neutrophils % 73.8 % (38.7-73.9); Platelet Count 275 T/CUMM (130-400); Red Blood Count 3.76 MC/CUMM (3.8-5.5); White Blood Count 11.27 T/CUMM (4-12)
[2022-07-29] MEDS: LEVOTHYROXINE 50 MCG TABLET PO SCH (05:56)
[2022-07-29 06:10] LABS: Calcium 8.7 MG/DL (8.5-10.1); Osmolality,Calculated 256.2 MOS/KG (273-304); Potassium 4.1 MMOL/L (3.5-5.1)
[2022-07-29 06:14] LABS: Hypochromia Slight; Lymphocytes 13 % (20-55); Microcytosis Slight; Platelet Estimate Adequate; Total Cells Counted 100
[2022-07-29] MEDS ORDERED: SERTRALINE 100 MG TABLET PO SCH (09:00)
[2022-07-29] MEDS: TAMSULOSIN 0.4 MG CAPSULE PO SCH ×2 (10:08→21:02)
[2022-07-29] MEDS: CLOPIDOGREL 75 MG TABLET PO SCH (10:08)
[2022-07-29] MEDS: DAPAGLIFLOZIN 10 MG TABLET PO SCH (10:08)
[2022-07-29] MEDS: METOPROLOL TARTRATE 25 MG TABLET PO SCH ×2 (10:08→21:03)
[2022-07-29] MEDS: NICOTINE 14 MG/24 HR PATCH TRANSDERM SCH (10:08)
[2022-07-29] MEDS: LEVOFLOXACIN 750 MG TABLET PO SCH (10:09)
[2022-07-29] MEDS: ISOSORBIDE MONONITRATE 30 MG TABLET PO SCH (10:09)
[2022-07-29] MEDS: risperiDONE 0.5 MG TABLET PO SCH ×2 (10:09→21:03)
[2022-07-29] MEDS: PREGABALIN 100 MG CAPSULE PO SCH ×2 (10:09→21:03)
[2022-07-29] MEDS: DIVALPROEX 500 MG TABLET PO SCH ×2 (10:09→21:02)
[2022-07-29] MEDS: OXcarbazepine 300 MG TABLET PO SCH ×2 (10:09→21:02)
[2022-07-29] MEDS: LOSARTAN 25 MG TABLET PO SCH (10:09)
[2022-07-29] MEDS: ASPIRIN EC 81 MG TABLET PO SCH (10:09)
[2022-07-29] MEDS: [UNRECOGNIZED DRUG - MIXTURE] INH SCH ×2 (10:10→22:53)
[2022-07-29] MEDS: ZINC OXIDE 16% PASTE 57 GM TUBE TOP SCH ×2 (10:10→22:53)
[2022-07-29] MEDS: methylPREDNISolone SOD SUC 40 MG/1 ML VIAL IV SCH ×2 (10:10→21:03)
[2022-07-29] MEDS: FUROSEMIDE 40 MG TABLET PO SCH (10:21)
[2022-07-29] MEDS: INSULIN LISPRO 100 UNIT/ML SUBCUT SCH ×4 (11:13→21:00)
[2022-07-29] MEDS: LINEZOLID INJ 600 MG/300 ML PREMIX IV SCH ×2 (12:25→23:52)
[2022-07-29] MEDS: ENOXAPARIN 40 MG/0.4 ML SYRINGE SUBCUT SCH (14:30)
[2022-07-29] MEDS: PANTOPRAZOLE 40 MG VIAL IV SCH (14:30)
[2022-07-29] MEDS: ATORVASTATIN 40 MG TABLET PO SCH (21:03)
[2022-07-30] MEDS: ALBUTEROL 2.5 MG/3 ML NEB RESP TX SCH ×2 (00:54→07:34)
[2022-07-30] MEDS: LEVOTHYROXINE 50 MCG TABLET PO SCH (06:20)
[2022-07-30] MEDS ORDERED: SERTRALINE 50 MG TABLET PO SCH (09:00)
[2022-07-30 09:38] LABS: Basophils % 0.2 % (0.0-0.8); Hematocrit 36.6 VOL% (42.0-52.0); Immature Granulocytes % 11.6 %; Immature Granulocytes Absolute 1.26 #; Lymphocytes # 1.5 10*3/uL (1.4-4.0); Lymphocytes % 13.5 % (21.2-54.2); Mean Corpuscular HGB Conc 32.8 GM/DL (32-36); Mean Corpuscular Volume 85.1 FL (87-102); Mean Platelet Volume 10.8 FL (9.6-12.0); Monocytes % 9.4 % (1.7-12.7); Neutrophils % 65.3 % (38.7-73.9); Platelet Count 296 T/CUMM (130-400)
[2022-07-30] MEDS: [UNRECOGNIZED DRUG - MIXTURE] INH SCH (09:43)
[2022-07-30] MEDS: NICOTINE 14 MG/24 HR PATCH TRANSDERM SCH (09:44)
[2022-07-30] MEDS: ASPIRIN EC 81 MG TABLET PO SCH (09:44)
[2022-07-30] MEDS: LEVOFLOXACIN 750 MG TABLET PO SCH (09:44)
[2022-07-30] MEDS: DIVALPROEX 500 MG TABLET PO SCH (09:44)
[2022-07-30] MEDS: ISOSORBIDE MONONITRATE 30 MG TABLET PO SCH (09:44)
[2022-07-30] MEDS: CLOPIDOGREL 75 MG TABLET PO SCH (09:44)
[2022-07-30] MEDS: FUROSEMIDE 40 MG TABLET PO SCH (09:45)
[2022-07-30] MEDS: LOSARTAN 25 MG TABLET PO SCH (09:45)
[2022-07-30] MEDS: risperiDONE 0.5 MG TABLET PO SCH (09:45)
[2022-07-30] MEDS: OXcarbazepine 300 MG TABLET PO SCH (09:45)
[2022-07-30] MEDS: PREGABALIN 100 MG CAPSULE PO SCH (09:45)
[2022-07-30] MEDS: METOPROLOL TARTRATE 25 MG TABLET PO SCH (09:45)
[2022-07-30] MEDS: DAPAGLIFLOZIN 10 MG TABLET PO SCH (09:46)
[2022-07-30] MEDS: TAMSULOSIN 0.4 MG CAPSULE PO SCH (09:46)
[2022-07-30] MEDS: ZINC OXIDE 16% PASTE 57 GM TUBE TOP SCH (09:46)
[2022-07-30] MEDS: INSULIN LISPRO 100 UNIT/ML SUBCUT SCH ×2 (09:49→11:33)
[2022-07-30] MEDS: methylPREDNISolone SOD SUC 40 MG/1 ML VIAL IV SCH (09:49)
[2022-07-30 09:54] LABS: Alanine Aminotransferase 13 U/L (16-61); Albumin 2.5 G/DL (3.4-5.0); Alkaline Phosphatase 64 U/L (45-117); Aspartate Amino Transferase 10 U/L (0-37); Bilirubin,Total < 0.39 MG/DL (0.20-1.00); Blood Urea Nitrogen 16 MG/DL (7-18); Carbon Dioxide 31 MMOL/L (21-32); Chloride 96 MMOL/L (98-107); Glucose 151 MG/DL (74-106); Osmolality,Calculated 269.4 MOS/KG (273-304); Potassium 4.8 MMOL/L (3.5-5.1); Sodium 133 MMOL/L (136-145); Total Protein 6.7 G/DL (6.4-8.2)
[2022-07-30 09:57] LABS: Eosinophils 1 % (0-10); Lymphocytes 18 % (20-55); Total Cells Counted 100
[2022-07-30 09:58] LABS: Microcytosis Slight; Ovalocytes Slight
[2022-07-30 10:01] LABS: Polychromasia Slight
[2022-07-30 12:02] VITALS: BP 135/85
[2022-07-30] MEDS: LINEZOLID INJ 600 MG/300 ML PREMIX IV SCH (12:30)
== END 2022-07-30 14:36 | DRG 193 ==
LOC: N.ED 11:23 → N.EDINP 13:54 → SUATTDRO 13:54 → N.ICU 15:43 → N.3E 07-27 17:29
PROVIDERS: ADMIT Internal Medicine; ATTEND Family Medicine